=== PATIENT | female | born 1930 | race Caucasian/White ===

== ENCOUNTER 2017-02-11 18:45 | Outpatient (CLI) | payer MEDICARE, OTHER | END 2017-02-11 18:46 | disposition home or self-care (01) | DX: M79.605 Pain in left leg (principal) ==

== ENCOUNTER 2017-04-24 13:58 | Outpatient (CLI) | payer MEDICARE, OTHER ==
--- NOTE | 2017-04-25 09:17 | MRI Report ---
EXAM: MRI BRAIN WITHOUT CONTRAST EXAM DATE: 04/24/2017 03:40 PM. CLINICAL HISTORY: Mild cognitive impairment, amnesia. COMPARISON: CT scan of the head without contrast 01/11/2016. TECHNIQUE: Multiplanar, multisequence T1-weighted and fluid-sensitive MR sequences of the brain were performed. Sequences optimized for routine evaluation. Other: None. IV Contrast: None. FINDINGS: The diffusion-weighted images are normal. There is no evidence of acute or subacute cerebral infarcti on. There is focal enlargement of a sulcus of the medial frontoparietal junction. This measures 8 x 8 mm and likely reflects an arachnoid cyst within the sulcus. The pituitary and sella are normal. The craniocervical junction is normal. There is near complete opacification of the right sphenoid air cell exhibiting T1 hyperintensity and T2 hypointensity consistent with a mucous retention cyst. There is questionable mild sclerosis of the amos of the sphenoid air cell and therefore this may reflect a concomitant chronic sphenoid sinusit is. There is mild mucosal thickening in the anterior ethmoid complexes bilaterally. The cerebral vascular flow voids are patent. There is enlargement of the lateral ventricles and third ventricle. There is no funneling of the cere bral aqueduct. The Bang ratio is mildly elevated at 0.38. In the correct clinical setting I cannot e xclude the possibility of normal-pressure hydrocephalus. Recommend correlation with the clinical symp toms. The T2* sequence is normal. There is no evidence of subacute or chronic hemorrhage. There is mild mucosal thickening in the bilateral maxillary sinuses. There is a normal appearance of the nerve exit zone, cisternal and internal auditory canal segments o f the bilateral 7th and 8th cranial nerves. There is a normal appearance of the nerve exit zone and cisternal segments of the bilateral trigemina l nerve and Meckel's cave. The degree of atrophy of the hippocampi does not appear to be out of proportion to that of the suprat entorial brain. The FLAIR images demonstrate a few punctuate T2 hyperintensities within the subcortical, deep, and pe riventricular white matter. This is consistent with a minimal degree of chronic small vessel ischemia . IMPRESSION: 1. There is no evidence of acute or subacute cerebral infarction. 2. There is enlargement of the lateral ventricles and third ventricle which is at or slightly greater than expected for the degree of sulcal enlargement. The Bang ratio is mildly elevated at 0.38. In t he correct clinical setting, I cannot exclude normal-pressure hydrocephalus. Therefore recommend clin ical correlation. 3. There is minimal chronic small-vessel ischemia. 4. There is no evidence of brain mass. 5. The degree of hippocampal volume loss does not appear to be out of proportion to that of the supra tentorial brain. 6. There is a small arachnoid cyst of a sulcus of the left frontoparietal junction. 7. There is a large mucous retention cyst present within the right sphenoid air cell. Referring Provider Line: [phone] SITE ID: [id number]
== END 2017-04-24 13:59 | disposition home or self-care (01) ==
LOC: DI 13:58
PROVIDERS: ATTEND Family Medicine
DX: G93.0 Cerebral cysts (principal); G93.89 Other specified disorders of brain; J34.1 Cyst and mucocele of nose and nasal sinus
CPT/HCPCS: 70551

== ENCOUNTER 2017-07-14 12:20 | Outpatient (CLI) | payer MEDICARE, OTHER | END 2017-07-14 12:21 | disposition home or self-care (01) | LOC: LAB.WCP 12:20 | PROVIDERS: ATTEND Family Medicine | DX: N39.0 Urinary tract infection, site not specified (principal) | CPT/HCPCS: 87077; 87086 ==

== ENCOUNTER 2017-07-31 11:00 | Outpatient (CLI) | payer MEDICARE, OTHER ==
--- NOTE | 2017-07-31 14:14 | CONSULTATION NOTE ---
Palliative Care Follow Up - Referral Referring Provider: Dr Courtney Ordaz Time of Visit: 11:00 Referral setting: [facility] [place] - Information Sources Records reviewed: Previous records reviewed History/Review of Systems obtained from: Patient, Family - History of Present Illness Update Brief HPI Update: Thank you, Dr. Ordaz, for asking the palliative care consult service to be involved in the care of your patient. I am asked to provide support regarding worsening memory issues and goals of care. 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 The patient has been experiencing cognitive deficits which have increased over the past 6-8 weeks. She is quite involved with her local orthodox, and orthodox members have been noticing and inquiring of the daughters about developments such as her increasing slowness in the quilting group, being unable to do the set up for the social functions, and requiring prompting to turn the pages of the choir [employer]. Her ability to perform Instrumental Activities of Daily Living (IADLs) has declined: losing her way home while driving and arriving home nearly at midnight , not taking her medications, not shopping, letting food rot in the fridge, eating halloween candy instead of meals, forgetting her regularly scheduled activities and mixing up days of the week, no longer paying her bills. Her daughters found she was not showering or shampooing for weeks at a time. Two of her daughters confiscated her car keys to prevent her from driving, and now plan to remove the car for fear she still has access to a second set of keys. The patient is unaware of the extent of her cognitive decline, and is upset and dissatisfied about "being treated like a child, which is very painful for me." This is a [employer] family. The daughters explained that the first 3 daughters had a " family" history, meaning that they moved around the country and had a " mom," someone capable who got things done, ran the household and raised the children while the father was gone. There was a large time gap before the fourth daughter was born, and she was not really a " kid" because by then the father had retired from the [employer], and they had settled on [facility], and he went into the private sector, working at [employer] for the remainder of his career. The patient does see herself as a very capable, independent woman, and she has always been that way, so it has been difficult for her to have her independence being taken from her, as she views it, and worse is seeing changes in her abilities and her situation, which she never expected to experience. Her mental confusion has included delusions and hallucinations, thinking people were breaking into her house, or that her grandchildren were with her (they were in [place]). This might have been amplified by a recent K pneumoniae UTI, which was treated with a one-week regimen of antibiotics and just completed. At one point she became tearful when discussing the loss of her who 7 years ago. She recognizes she is still grieving for him, but she denies being depressed. Her daughters report she is at times confused and speaks as though he is still living. Due to her significant cognitive changes, the daughters have arranged for Sandra, who lives in [place], to stay with the patient in her home for weeks at a time. Elaina, the daughter who is the DPOA, lives in [place] but works full-time so it is difficult for her to transport her mother as needed, or to spend the nights. The third daughter who lives in [place] is also involved with her mother's care and has been able to occasionally stay too. Sandra will not be able to indefinitely stay at her mother's, and so the daughters are looking at longer term solutions, such as a dementia unit. The patient had lost weight previously when she was living solo, and the daughters estimate she may have dropped to less than 100 pounds. She has been eating better since Sandra has been living with her and cooking for her -- she weighed 110 pounds at the 07/14/17 clinic visit. The patient reports improved pain in her L hip, which had been bothering her in the past. She reports having no pain currently. She has previously taking and ibuprofen for it. She had a consultation with an orthopedic surgeon and surgical intervention was not indicated. She is currently on break from physical therapy, but will be restarting again on 08/04/17. She has been referred to neurology due to indication during her PCP's assessment there may be cogwheel rigidity in her upper extremities. This appointment is 08/18/[address] Kennedy at [facility]. Social History - Living Situation Living arrangement: At home Living Situation: Alone (previously), With family (currently, as a temporary solution her daughters are living/staying with her) Support System: The patient has lived on [facility] for 30 years, and in her home, which she had her built, for many years. Her , who was retired and then worked at [employer], in 2009. The [place] in a somewhat [place] setting, [place] [facility] [place] and has only a few houses around it. Her daughters stay at her house with her as much as possible. Sandra from [place] has been able to stay for extended periods. 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 Elaina lives in [place] and will spend the night at her mother's, but she works multimedia services manager so is limited in her ability to be there during the weekdays. Katie in [place] can occasionally stay too. The fourth and eldest daughter lives in [place] and is in regular communication with the family. The patient is quite active at her local orthodox in [place], involved in activities such as choir, a quilting group, book study. Medications/Allergies - Medications Home Medications: Ambulatory Orders Medication Instructions Recorded Confirmed Hydrochlorothiazide 25 mg PO DAILY 12/14/14 07/31/17 Propranolol HCl [Innopran Xl] 120 mg PO DAILY 12/14/14 07/31/17 Raloxifene [Evista] 60 mg PO DAILY 12/14/14 07/31/17 Doxycycline Hyclate 100 mg PO BID 07/31/17 07/31/17 Lisinopril 10 mg PO 07/31/17 Loperamide HCl [Imodium A-D] 2 mg PO DAILY PRN 07/31/17 07/31/17 - Allergies Allergies/Adverse Reactions: Allergies Allergy/AdvReac Type Severity Reaction Status Date / Time amoxicillin AdvReac Unknown Unknown Verified 07/31/17 16:02 Erythromycin AdvReac Unknown Unknown Uncoded 07/31/17 16:02 Review of Systems - Constitutional Constitutional: reports: Weight gain (110 lbs at 07/14/17 clinic visit. Daughters believe this is about a 10 lb weight gain.). denies: Fatigue, Fever, Chills, Poor appetite - Eyes Eyes: reports: Corrective lenses - Cardiovascular Cardiovascular: denies: Chest pain, Edema - Respiratory Respiratory: denies: Cough, SOB at rest, SOB with exertion - Gastrointestinal Gastrointestinal: reports: Other (loose stools which she controls with Imodium) - Musculoskeletal Musculoskeletal: reports: Other (No current complaint of L hip pain) - Neurological Neurological: reports: Memory problems, Other (Rigidity in upper extremities noted by PCP, with referral to neurology) - Psychiatric Psychiatric: reports: Hallucinations (Daughters report visual hallucinations in the past, seeing her grandchildren, or believing people were breaking in to her house.) Physical Exam - Vital Signs Temperature: 97.6 F Pulse Rate: 54 O2 Saturation: 99 Blood Pressure: 110/70 - Physical Exam General Appearance: positive: No acute distress, Alert Eyes Bilateral: positive: EOMI, No lid inflammation, Conjunctivae nml, No scleral icterus, Other (R eye squint) ENT: positive: No signs of dehydration Neck: positive: Thyroid nml, No JVD, Trachea midline Cardiovascular: positive: Regular rate & rhythm, No murmur, No gallop Respiratory: positive: Chest non-tender, No respiratory distress, Breath sounds nml Abdomen: positive: Non-tender, Soft, Nml bowel sounds Skin: positive: No symptoms Extremities: positive: Non-tender, Full ROM, Nml appearance, No pedal edema Neurologic/Psychiatric: positive: Motor nml, Mood/affect nml Palliative Care - POLST Patient has POLST: Yes POLST Status: DNR, Comfort Measures Pain: No pain, Pain improved Tiredness/Fatigue: None Drowsiness/Sedation: None Nausea: None Depression: Mild (1-3) (tearfulness during visit, may be feeling some depressed mood) Anxiety: Mild (1-3) (dissatisfaction with not having access to her car) Dyspnea: None Anorexia: None Sleep: Sleeps well Constipation: No (loose stools) Feelings of wellbeing/Perceived Quality of Life: Comment (Feels she is losing her independence and is "being treated like a child.") Performance Status: Current level of functioning: Significant decline of ADLs (lack of showering, eating inadequately) and IADLs (bill paying, driving, managing her calendar and social engagements, cooking her meals, shopping), inability to participate normally in social engagements (requiring prompting during choir practice, unable to set up tables at events, etc) Palliative Care Performance Status: 60% FAST Stage: 4 - Palliative Care Discussion: Who is present: The patient, her daughters Elaina and Sandra, myself Surrogate decision maker: Daughter/DPOA Elaina, . 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 Daughter Sandra, lives in [place] but stays frequently at her mother's house to help and cook for her. Daughter Katie Davidson, , lives in [place]. Daughter Leidy, the eldest, lives in [place]. She is in regular communication with the rest of the family. Patient/Family understanding of the illness: The patient does not have insight or realistic understanding of the extent of her memory issues and deficits. She is at the "rebellion" stage (taking a shower, or not, because "my daughter made me") The daughters recognize that the patient has increasing cognitive deficit and have appropriately increased their level of care and involvement and have started researching for alternate living situations. They are on two waitlists for memory units, one on the [place] and the other at [place]. Their preference at this point is [facility], since Elaina lives there. They had considered [place], but that is too far from the patient's social network. We discussed that they could also research local assisted living facilities, which may be able to accommodate the patient's needs, since her cognitive deficiencies are still mild and living with more advanced dementia residents may be very frustrating for her. Information preferences: The daughters made a request to the PCP to call Elaina and Katie for patient care. I spoke today with Elaina and Sandra since they were the ones in attendance at the visit. I followed up with a phone call to Sandra for further history. Most important goals and family concerns: The patient's independence is very important to her, and feeling as though she is still capable and in control of her life. Related to this is her desire to stay her in home. She was a , and she and her built this home after he retired from the service, and she has lived there many years, and does not want to leave her home, even if it means less mobility and convenience and social connections than if she were in town. The family is currently able to accommodate this wish, but only because Sandra is able to spend extended periods of time living with her and helping out. She cannot continue to do so indefinitely since she lives in [place] with her and family. Elaina and Sandra recognize it would be unsafe for the patient to be living solo, without support and oversight for ADLs and IADLs. They ensure she eats properly, takes her medications, is hygienic, has safe transportation to appointments, shopping, orthodox and social activities. They feel 24 hour/7 days-a-week care-giving at her home is not financially feasible, even if it were available. They have done research into memory units (and have been signed on to 2 waitlists), and are open to considering an assisted living unit. They would appreciate support and guidance on solutions to keeping their mother in her home, if it's safe, healthy, and feasible, and if it's not, then finding an appropriate residential setting. We also discussed goals of care and advanced planning. Patient and daughters were in agreement that comfort measures were consistent with the patient's goals , and not unnecessarily or artificially trying to prolong her life. "When the end comes, let it come." Impression and Recommendations - Palliative Care Impression: This is an 86-year-old woman with mild to moderate cognitive decline, but otherwise in relatively good health. She has experienced a recentdecline in her ability to perform ADLs and IADLs, and both she and her family would benefit from resources and support to keep her safe while living at home now, and eventually finding a suitable and safe living situation, whether at home with caregiving coverage, or in another setting. Currently she is able to remain at home due to her daughters coordinating their lives and schedules so she is not living alone, but this is not sustainable. The patient and family would benefit from social work support. Recommendations/Counseling Done: K pneumoniae UTI: Confusion improved, doxycycline 7-day regimen completed. They will return to PCP clinic for follow up UA. Dementia/cognitive deficit: Increased cognitive deficits impacting patient's ability to live independently. I am referring them to Palliative Care Fishing Vessel Operator for resource support and guidance. Patient has been referred by PCP to Neurology for evaluation and diagnosis of possible Parkinson's. L hip pain: Pain improved currently. Orthopedic surgeon consulted, surgery is not indicated. Physical therapy currently suspended; PT will restart on an outpatient basis on 08/04/17. HTN: Blood pressure 110/70. She is taking medications regularly since daughters have been monitoring. Continue propanolol, lisinopril, hctz. Loose stools, chronic: Controlled using loperamide daily as needed. Advanced care planning: Goals of care discussed and POLST signed: DNR, comfort care. Follow up in 1-2 weeks. 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 Time Spent: 75 minutes with greater than 50% of this done in counseling and coordination of care regarding advanced care planning and safe living situations, weighing benefits and burdens of different options.
== END 2017-07-31 11:01 | disposition home or self-care (01) ==
LOC: PC 11:00
PROVIDERS: ATTEND Nurse Practitioner
DX: Z51.5 Encounter for palliative care (principal); N39.0 Urinary tract infection, site not specified; B96.1 Klebsiella pneumoniae [K. pneumoniae] as the cause of diseases classified elsewhere; G31.84 Mild cognitive impairment of uncertain or unknown etiology; M25.552 Pain in left hip; I10 Essential (primary) hypertension; R19.7 Diarrhea, unspecified; N28.9 Disorder of kidney and ureter, unspecified; E78.5 Hyperlipidemia, unspecified; K58.9 Irritable bowel syndrome, unspecified; I73.00 Raynaud's syndrome without gangrene; R44.1 Visual hallucinations; F22 Delusional disorders; Z66 Do not resuscitate
CPT/HCPCS: 99205

== ENCOUNTER 2017-09-11 14:53 | Outpatient (CLI) | payer MEDICARE, OTHER ==
[2017-09-11 15:01] LABS: H. PYLORIS ANTIGEN STL NEGATIVE (Negative)
== END 2017-09-11 14:54 | disposition home or self-care (01) ==
LOC: LAB.WCP 14:53
PROVIDERS: ATTEND Family Medicine
DX: R19.7 Diarrhea, unspecified (principal)
CPT/HCPCS: 81599; 87045; 87046; 87177; 87209; 87329; 87338

== ENCOUNTER 2017-10-29 08:00 | Outpatient (CLI) | payer MEDICARE, OTHER | END 2017-10-29 08:01 | disposition home or self-care (01) | LOC: LAB.WCP 08:00 | PROVIDERS: ATTEND Family Medicine | DX: N39.0 Urinary tract infection, site not specified (principal) | CPT/HCPCS: 87086 ==

== ENCOUNTER 2017-11-22 13:06 | Emergency (ER) | payer MEDICARE, OTHER ==
--- NOTE | 2017-11-22 13:34 | ED Physician Documentation ---
PD HPI FEMALE - Stated complaint Stated Complaint: FEMALE - Chief complaint Chief Complaint: Abd Pain - History obtained from History obtained from: Patient, Family (daughter) - History of Present Illness Timing - onset: Today Timing - details: Waxing and waning (her daughter thought she was a bit confused at times this morning. Has had similar symptoms with UTIs in the past. Has not seemed sick otherwise. Normal eating (small amounts). No URI symptoms. No vomiting.) Associated symptoms: No: Fever, Dysuria, Urinary frequency Similar symptoms before: Diagnosis (UTI) Recently seen: Not recently seen Review of Systems Constitutional: denies: Fever Nose: denies: Rhinorrhea / runny nose, Congestion Throat: denies: Sore throat Cardiac: denies: Chest pain / pressure Respiratory: denies: Cough GI: denies: Abdominal Pain, Nausea, Vomiting, Diarrhea : denies: Dysuria, Frequency Skin: denies: Rash Neurologic: reports: Confused. denies: Generalized weakness, Focal weakness, Numbness, Near syncope, Altered mental status, Headache, Head injury PD PAST MEDICAL HISTORY - Past Medical History Cardiovascular: Hypertension Respiratory: None Neuro: None Psych: None - Past Surgical History Past Surgical History: No - Present Medications Home Medications: Ambulatory Orders Medication Instructions Recorded Confirmed Hydrochlorothiazide 25 mg PO DAILY 12/14/14 07/31/17 Propranolol HCl [Innopran Xl] 120 mg PO DAILY 12/14/14 07/31/17 Raloxifene [Evista] 60 mg PO DAILY 12/14/14 07/31/17 Doxycycline Hyclate 100 mg PO BID 07/31/17 07/31/17 Lisinopril 10 mg PO 07/31/17 Loperamide HCl [Imodium A-D] 2 mg PO DAILY PRN 07/31/17 07/31/17 - Allergies Allergies/Adverse Reactions: Allergies Allergy/AdvReac Type Severity Reaction Status Date / Time amoxicillin AdvReac Unknown Unknown Verified 11/22/17 13:16 Erythromycin AdvReac Unknown Unknown Uncoded 11/22/17 13:16 - Social History Does the pt smoke?: No Does the pt drink ETOH?: Yes Does the pt have substance abuse?: No - Immunizations Immunizations are current?: Yes - POLST Patient has POLST: Yes PD ED PE NORMAL - Vitals Vital signs reviewed: Yes - General General: Alert and oriented X 3, No acute distress, Well developed/nourished - HEENT HEENT: Atraumatic, Ears normal, Pharynx benign - Neck Neck: Supple, no meningeal sign, No adenopathy - Cardiac Cardiac: RRR, No murmur - Respiratory Respiratory: Clear bilaterally - Abdomen Abdomen: Soft, Non tender - Back Back: No CVA TTP - Derm Derm: Normal color, Warm and dry - Extremities Extremities: No tenderness to palpate, Normal ROM s pain, No edema, No calf tenderness / cord - Neuro Neuro: Alert and oriented X 3, No motor deficit, Normal speech Results - Vitals Vitals: Oxygen O2 Source Room air - Labs Labs: Laboratory Tests 11/22/17 11/22/17 11/22/17 13:59 14:19 14:19 WBC 6.6 RBC 3.41 L Hgb 11.2 L Hct 32.5 L MCV 95.3 MCH 32.7 H MCHC 34.3 RDW 13.6 Plt Count 188 MPV 7.9 Neut # 3.7 Lymph # 1.6 Nelson # 0.8 Eos # 0.4 Baso # 0.1 Absolute Nucleated RBC 0.01 Nucleated RBC % 0.1 Sodium 142 Potassium 3.7 Chloride 108 Carbon Dioxide 24 Anion Gap 10.0 BUN 32 H Creatinine 1.5 H Estimated GFR (MDRD) 33 L Glucose 97 Calcium 8.9 Magnesium 1.9 Total Bilirubin 0.8 AST 24 ALT 15 Alkaline Phosphatase 83 Total Protein 6.4 L Albumin 3.6 Globulin 2.8 Albumin/Globulin Ratio 1.3 Lipase 26 Urine Color YELLOW Urine Clarity CLEAR Urine pH 6.0 Ur Specific [place] 1.010 Urine Protein NEGATIVE Urine Glucose (UA) NEGATIVE Urine Ketones NEGATIVE Urine Occult Blood TRACE-LYSE Urine Nitrite NEGATIVE Urine Bilirubin NEGATIVE Urine Urobilinogen 0.2 (NORMAL) Ur Leukocyte Esterase NEGATIVE Ur Microscopic Review NOT INDICATED Urine Culture Comments NOT INDICATED PD MEDICAL DECISION MAKING - ED course Complexity details: considered differential (the patient seems conversant and alert right now. Daughter is okay with not finding UTI. Consider undulating confusion related to her dementia. ), d/w patient, d/w family Departure - Departure Disposition: 01 Home, Self Care Clinical Impression: Altered awareness, transient Clinical Impression: (Ruled Out): Urinary tract infectious disease Condition: Stable Record reviewed to determine appropriate education?: Yes Follow-Up: Courtney Ordaz MD [Primary Care Provider] - Comments: Usual medications. drink lots of fluids. Follow-up with your primary care if recurrent symptoms. Your urine test and basic blood tests are normal here as are your vital signs. Discharge Date/Time: 11/22/17 15:52
[2017-11-22 14:03] LABS: BILIRUBIN,URINE NEGATIVE (NEGATIVE); GLUCOSE, URINE (UA) NEGATIVE (NEGATIVE); KETONES,URINE (UA) NEGATIVE (NEGATIVE); LEUKOCYTE ESTERASE, URINE NEGATIVE (NEGATIVE); NITRITE,URINE NEGATIVE (NEGATIVE); OCCULT BLOOD,URINE TRACE-LYSE (NEGATIVE); PROTEIN,URINE NEGATIVE (NEGATIVE); UROBILINOGEN,URINE 0.2 (NORMAL) E.U./dL (NORMAL)
[2017-11-22 14:11] LABS: CLARITY,URINE CLEAR (CLEAR)
[2017-11-22 14:41] LABS: BASOPHILS # (AUTO) 0.1 10^3/uL (0.0-0.1); BASOPHILS % (AUTO) 0.9 %; EOSINOPHILS # (AUTO) 0.4 10^3/uL (0.0-0.7); EOSINOPHILS % (AUTO) 6.6 %; HGB - HEMOGLOBIN 11.2 g/dL (12.0-16.0); LYMPHOCYTES # (AUTO) 1.6 10^3/uL (1.5-3.5); LYMPHOCYTES % (AUTO) 23.9 %; MEAN CORPUSCULAR HEMOGLOBIN 32.7 pg (27.0-31.0); MEAN CORPUSCULAR HGB CONC 34.3 g/dL (32.0-36.0); MEAN CORPUSCULAR VOLUME 95.3 fL (81.0-99.0); MEAN PLATELET VOLUME 7.9 fL (7.9-10.8); MONOCYTES # (AUTO) 0.8 10^3/uL (0.0-1.0); MONOCYTES % (AUTO) 11.9 %; NEUTROPHILS # (AUTO) 3.7 10^3/uL (1.5-6.6); NEUTROPHILS % (AUTO) 56.7 %; PLT - PLATELET COUNT 188 10^3/uL (130-450); RED BLOOD COUNT 3.41 10^6/uL (4.20-5.40); RED CELL DISTRIBUTION WIDTH 13.6 % (12.0-15.0); WHITE BLOOD COUNT 6.6 x10^3/uL (4.8-10.8)
[2017-11-22 14:44] LABS: ALBUMIN 3.6 g/dL (3.2-5.5); ALBUMIN/GLOBULIN RATIO 1.3 (1.0-2.2); BILIRUBIN,TOTAL 0.8 mg/dL (0.2-1.0); CALCIUM 8.9 mg/dL (8.5-10.3); CREATININE 1.5 mg/dL (0.4-1.0); MAGNESIUM 1.9 mg/dL (1.7-2.8); TOTAL PROTEIN 6.4 g/dL (6.7-8.2)
[2017-11-22 15:52] VITALS: BP 120/59
== END 2017-11-22 15:52 | disposition home or self-care (01) ==
LOC: ED 13:06
DX: R40.4 Transient alteration of awareness (principal); I10 Essential (primary) hypertension
CPT/HCPCS: 36415; 80053; 81001; 81003; 83690; 83735; 85025; 87086; 99283

== ENCOUNTER 2018-04-20 09:04 | Outpatient (CLI) | payer MEDICARE, OTHER ==
[2018-04-20 13:21] LABS: CALCIUM 8.9 mg/dL (8.5-10.3); CREATININE 1.4 mg/dL (0.4-1.0)
== END 2018-04-20 09:05 | disposition home or self-care (01) ==
LOC: LAB.WCP 09:04
PROVIDERS: ATTEND Family Medicine
DX: I10 Essential (primary) hypertension (principal)
CPT/HCPCS: 36415; 80048

== ENCOUNTER 2018-07-03 09:31 | Outpatient (CLI) | payer MEDICARE, OTHER ==
[2018-07-03 12:14] LABS: BASOPHILS # (AUTO) 0.1 10^3/uL (0.0-0.1); BASOPHILS % (AUTO) 0.7 %; EOSINOPHILS # (AUTO) 0.3 10^3/uL (0.0-0.7); EOSINOPHILS % (AUTO) 4.4 %; HGB - HEMOGLOBIN 12.4 g/dL (12.0-16.0); LYMPHOCYTES # (AUTO) 1.2 10^3/uL (1.5-3.5); LYMPHOCYTES % (AUTO) 15.2 %; MEAN CORPUSCULAR HEMOGLOBIN 31.7 pg (27.0-31.0); MEAN CORPUSCULAR HGB CONC 34.1 g/dL (32.0-36.0); MEAN PLATELET VOLUME 8.5 fL (7.9-10.8); MONOCYTES # (AUTO) 0.6 10^3/uL (0.0-1.0); MONOCYTES % (AUTO) 7.3 %; NEUTROPHILS # (AUTO) 5.7 10^3/uL (1.5-6.6); NEUTROPHILS % (AUTO) 72.4 %; PLT - PLATELET COUNT 236 10^3/uL (130-450); RED CELL DISTRIBUTION WIDTH 13.8 % (12.0-15.0); WHITE BLOOD COUNT 7.8 x10^3/uL (4.8-10.8)
[2018-07-03 12:46] LABS: ALBUMIN 3.7 g/dL (3.2-5.5); ALBUMIN/GLOBULIN RATIO 1.3 (1.0-2.2); ALKALINE PHOSPHATASE 111 IU/L (42-121); ALT ALANINE AMINOTRANSFERASE 11 IU/L (10-60); AST ASPARTATE AMINOTRANSFERASE 21 IU/L (10-42); BILIRUBIN,TOTAL 0.8 mg/dL (0.2-1.0); BUN - BLOOD UREA NITROGEN 29 mg/dL (6-20); CALCIUM 8.6 mg/dL (8.5-10.3); CARBON DIOXIDE - CO2 29 mmol/L (21-32); CHLORIDE 106 mmol/L (101-111); CHOL/HDL RATIO 2.8 (<4.4); CHOLESTEROL 183 mg/dL; CREATININE 1.5 mg/dL (0.4-1.0); GFR - MDRD 33 (>89); GLUCOSE 104 mg/dL (70-100); HDL CHOLESTEROL 65 mg/dL; LDL CHOLESTEROL,CALCULATED 102 mg/dL; LDL/HDL RATIO 1.6 (<4.4); SODIUM 143 mmol/L (135-145); TOTAL PROTEIN 6.6 g/dL (6.7-8.2); VLDL CHOLESTEROL 16 mg/dL
== END 2018-07-03 09:32 | disposition home or self-care (01) ==
LOC: LAB.WCP 09:31
PROVIDERS: ATTEND Family Medicine
DX: E78.5 Hyperlipidemia, unspecified (principal); I10 Essential (primary) hypertension; R25.1 Tremor, unspecified
CPT/HCPCS: 36415; 80053; 80061; 83721; 84443; 85025

== ENCOUNTER 2018-10-08 16:06 | Emergency (ER) | payer MEDICARE, OTHER ==
[2018-10-08 17:37] LABS: BASOPHILS % (AUTO) 0.3 %; EOSINOPHILS # (AUTO) 0.2 10^3/uL (0.0-0.7); HGB - HEMOGLOBIN 13.6 g/dL (12.0-16.0); LYMPHOCYTES # (AUTO) 1.1 10^3/uL (1.5-3.5); LYMPHOCYTES % (AUTO) 9.8 %; MEAN CORPUSCULAR HEMOGLOBIN 30.6 pg (27.0-31.0); MEAN CORPUSCULAR HGB CONC 32.3 g/dL (32.0-36.0); MEAN CORPUSCULAR VOLUME 94.8 fL (81.0-99.0); MEAN PLATELET VOLUME 7.9 fL (7.9-10.8); MONOCYTES # (AUTO) 0.5 10^3/uL (0.0-1.0); MONOCYTES % (AUTO) 4.9 %; NEUTROPHILS # (AUTO) 9.1 10^3/uL (1.5-6.6); PLT - PLATELET COUNT 242 10^3/uL (130-450); RED BLOOD COUNT 4.43 10^6/uL (4.20-5.40); RED CELL DISTRIBUTION WIDTH 15.4 % (12.0-15.0); WHITE BLOOD COUNT 10.9 x10^3/uL (4.8-10.8)
[2018-10-08 17:46] LABS: ALBUMIN 4.2 g/dL (3.2-5.5); ALBUMIN/GLOBULIN RATIO 1.2 (1.0-2.2); BILIRUBIN,TOTAL 1.2 mg/dL (0.2-1.0); CALCIUM 8.6 mg/dL (8.5-10.3); CREATININE 1.5 mg/dL (0.4-1.0); TOTAL PROTEIN 7.6 g/dL (6.7-8.2)
[2018-10-08 18:06] LABS: BILIRUBIN,URINE NEGATIVE (NEGATIVE); GLUCOSE, URINE (UA) NEGATIVE (NEGATIVE); KETONES,URINE (UA) NEGATIVE (NEGATIVE); LEUKOCYTE ESTERASE, URINE NEGATIVE (NEGATIVE); NITRITE,URINE POSITIVE (NEGATIVE); OCCULT BLOOD,URINE TRACE-LYSE (NEGATIVE); PH,URINE 5.5 PH (5.0-7.5); PROTEIN,URINE NEGATIVE (NEGATIVE); UROBILINOGEN,URINE 0.2 (NORMAL) E.U./dL (NORMAL)
[2018-10-08 18:08] LABS: CLARITY,URINE CLEAR (CLEAR)
[2018-10-08 18:16] LABS: BACTERIA,URINE Many /HPF (None Seen); RBC,URINE 0-5 /HPF (0-5); SQUAMOUS EPITHELIAL CELL,UR RARE Squamous (<= Few)
--- NOTE | 2018-10-08 18:21 | ED Physician Documentation ---
PD HPI CHEST PAIN - Stated complaint Stated Complaint: ABD PX/VOM - Chief complaint Chief Complaint: Abd Pain PD PAST MEDICAL HISTORY - Past Medical History Cardiovascular: Hypertension Respiratory: None Psych: None - Past Surgical History Past Surgical History: No - Present Medications Home Medications: Ambulatory Orders Medication Instructions Recorded Confirmed Hydrochlorothiazide 25 mg PO DAILY 12/14/14 07/31/17 Propranolol HCl [Innopran Xl] 120 mg PO DAILY 12/14/14 07/31/17 Raloxifene [Evista] 60 mg PO DAILY 12/14/14 07/31/17 Doxycycline Hyclate 100 mg PO BID 07/31/17 07/31/17 Lisinopril 10 mg PO 07/31/17 Loperamide HCl [Imodium A-D] 2 mg PO DAILY PRN 07/31/17 07/31/17 - Allergies Allergies/Adverse Reactions: Allergies Allergy/AdvReac Type Severity Reaction Status Date / Time amoxicillin AdvReac Unknown Unknown Verified 10/08/18 16:36 Erythromycin AdvReac Unknown Unknown Uncoded 11/22/17 13:16 - Social History Does the pt smoke?: No Smoking Status: Never smoker Does the pt drink ETOH?: Yes Does the pt have substance abuse?: No - Immunizations Immunizations are current?: Yes - POLST Patient has POLST: Yes Results - Vitals Vitals: Vital Signs - 24 hr 10/08/18 16:24 Temperature 36.4 C L Heart Rate 71 Respiratory 18 Rate Blood Pressure 139/50 H O2 Saturation 100 Oxygen O2 Source Room air - Labs Labs: Laboratory Tests 10/08/18 10/08/18 10/08/18 17:05 17:05 18:00 WBC 10.9 H RBC 4.43 Hgb 13.6 Hct 42.0 MCV 94.8 MCH 30.6 MCHC 32.3 RDW 15.4 H Plt Count 242 MPV 7.9 Neut # (Auto) 9.1 H Lymph # (Auto) 1.1 L [place] # (Auto) 0.5 Eos # (Auto) 0.2 Baso # (Auto) 0.0 Absolute Nucleated RBC 0.01 Nucleated RBC % 0.1 Sodium 137 Potassium 2.9 L Chloride 102 Carbon Dioxide 26 Anion Gap 9.0 BUN 25 H Creatinine 1.5 H Estimated GFR (MDRD) 33 L Glucose 138 H Calcium 8.6 Total Bilirubin 1.2 H AST 189 H ALT 86 H Alkaline Phosphatase 130 H Total Protein 7.6 Albumin 4.2 Globulin 3.4 Albumin/Globulin Ratio 1.2 Lipase 81 H Urine Color YELLOW Urine Clarity CLEAR Urine pH 5.5 Ur Specific [place] >=1.030 H Urine Protein NEGATIVE Urine Glucose (UA) NEGATIVE Urine Ketones NEGATIVE Urine Occult Blood TRACE-LYSE Urine Nitrite POSITIVE H Urine Bilirubin NEGATIVE Urine Urobilinogen 0.2 (NORMAL) Ur Leukocyte Esterase NEGATIVE Urine RBC 0-5 Urine WBC 0-3 Ur Squamous Epith Cells RARE Squamous Urine Bacteria Many H Ur Microscopic Review INDICATED Urine Culture Comments INDICATED
--- NOTE | 2018-10-08 18:22 | ED Physician Documentation ---
PD HPI ABD PAIN - Stated complaint Stated Complaint: ABD PX/VOM - Chief complaint Chief Complaint: Abd Pain - History obtained from History obtained from: Patient, Family (daughter) - History of Present Illness Timing - onset: How many hours ago (1-2), Today Timing - duration: Hours (1) Timing - details: Abrupt onset (The patient and her daughter states she had an abrupt onset of diffuse to mid abdominal pain associated with nausea and vomiting several times. There is no diarrhea to it. She did not have any injury. She had been feeling okay earlier in the day and then abruptly had the pain. It lasted 1/2-hour to an hour it is improving on route to here. She states her pain is gone at this time of my exam. She had not had any prior similar episodes. She had eaten shortly before.) Quality: Cramping, Aching, Pain. No: Fullness/distended Location: All over / everywhere, Periumbilical Radiation: No: Chest, Lower back Improved by: No: Vomiting Worsened by: Moving, Palpation. No: Breathing Associated symptoms: Nausea, Vomiting. No: Fever, Diarrhea, Constipation, Dysuria, Chest pain, Loss of appetite Similar symptoms before: Has not had sx before Recently seen: Clinic (had UTI couple weeks ago and is finished abx last week.) Review of Systems Constitutional: denies: Fever, Myalgias Nose: denies: Rhinorrhea / runny nose, Congestion Throat: denies: Sore throat Cardiac: denies: Chest pain / pressure Respiratory: denies: Cough GI: denies: Constipation, Diarrhea, Bloody / black stool : denies: Dysuria, Frequency Skin: denies: Rash Neurologic: denies: Generalized weakness, Near syncope, Altered mental status PD PAST MEDICAL HISTORY - Past Medical History Cardiovascular: Hypertension Respiratory: None Neuro: None, Dementia Endocrine/Autoimmune: None : Chronic bladder infection Psych: None - Past Surgical History Past Surgical History: No - Present Medications Home Medications: Ambulatory Orders Medication Instructions Recorded Confirmed Hydrochlorothiazide 25 mg PO DAILY 12/14/14 07/31/17 Propranolol HCl [Innopran Xl] 120 mg PO DAILY 12/14/14 07/31/17 Raloxifene [Evista] 60 mg PO DAILY 12/14/14 07/31/17 Doxycycline Hyclate 100 mg PO BID 07/31/17 07/31/17 Lisinopril 10 mg PO 07/31/17 Loperamide HCl [Imodium A-D] 2 mg PO DAILY PRN 07/31/17 07/31/17 Potassium Chloride 10 meq PO DAILY #10 tablet.er 10/08/18 - Allergies Allergies/Adverse Reactions: Allergies Allergy/AdvReac Type Severity Reaction Status Date / Time amoxicillin AdvReac Unknown Unknown Verified 10/08/18 16:36 Erythromycin AdvReac Unknown Unknown Uncoded 11/22/17 13:16 - Social History Does the pt smoke?: No Smoking Status: Never smoker Does the pt drink ETOH?: Yes Does the pt have substance abuse?: No - Immunizations Immunizations are current?: Yes - POLST Patient has POLST: Yes PD ED PE NORMAL - Vitals Vital signs reviewed: Yes - General General: Alert and oriented X 3, No acute distress, Well developed/nourished - HEENT HEENT: Moist mucous membranes, Pharynx benign - Neck Neck: Supple, no meningeal sign, No adenopathy - Cardiac Cardiac: RRR, No murmur - Respiratory Respiratory: Clear bilaterally - Abdomen Abdomen: Normal bowel sounds, Soft, Non tender, Non distended, No organomegaly, Other (no palpable masses) - Female Female : Deferred - Rectal Rectal: Deferred - Back Back: No CVA TTP - Derm Derm: Normal color - Extremities Extremities: No deformity, No tenderness to palpate, Normal ROM s pain, No edema, No calf tenderness / cord - Neuro Neuro: Alert and oriented X 3, No motor deficit, Normal speech Results - Vitals Vitals: Oxygen O2 Source Room air - Labs Labs: Microbiology 10/08/18 18:00 Urine Culture - Final Urine,Clean Catch Escherichia Coli Laboratory Tests 10/08/18 10/08/18 10/08/18 17:05 17:05 18:00 WBC 10.9 H RBC 4.43 Hgb 13.6 Hct 42.0 MCV 94.8 MCH 30.6 MCHC 32.3 RDW 15.4 H Plt Count 242 MPV 7.9 Neut # (Auto) 9.1 H Lymph # (Auto) 1.1 L [place] # (Auto) 0.5 Eos # (Auto) 0.2 Baso # (Auto) 0.0 Absolute Nucleated RBC 0.01 Nucleated RBC % 0.1 Sodium 137 Potassium 2.9 L Chloride 102 Carbon Dioxide 26 Anion Gap 9.0 BUN 25 H Creatinine 1.5 H Estimated GFR (MDRD) 33 L Glucose 138 H Calcium 8.6 Total Bilirubin 1.2 H AST 189 H ALT 86 H Alkaline Phosphatase 130 H Total Protein 7.6 Albumin 4.2 Globulin 3.4 Albumin/Globulin Ratio 1.2 Lipase 81 H Urine Color YELLOW Urine Clarity CLEAR Urine pH 5.5 Ur Specific [place] >=1.030 H Urine Protein NEGATIVE Urine Glucose (UA) NEGATIVE Urine Ketones NEGATIVE Urine Occult Blood TRACE-LYSE Urine Nitrite POSITIVE H Urine Bilirubin NEGATIVE Urine Urobilinogen 0.2 (NORMAL) Ur Leukocyte Esterase NEGATIVE Urine RBC 0-5 Urine WBC 0-3 Ur Squamous Epith Cells RARE Squamous Urine Bacteria Many H Ur Microscopic Review INDICATED Urine Culture Comments INDICATED - Rads (name of study) abd CT Radiology: Prelim report reviewed (Diverticulosis without any diverticulitis. No signs of bowel obstruction. No kidney stones. Gallbladder appears normal. No obvious vascular process.), See rad report PD MEDICAL DECISION MAKING - ED course Complexity details: reviewed results (No obvious acute abnormality. There is some possible UTI but her daughter says this is a common finding. They would prefer to wait on the cultures to see if it is a true infection.), considered differential (Abrupt onset of pain which then diminished and is feeling good now, makes me think of reversible processes such as partial bowel obstruction, biliary colic, mesenteric ischemia, kidney stone, or just intestinal spasm. Even though she is feeling better now I would still do some lab tests and a CT scan to look for potential recurrent causes.), d/w patient Departure - Departure Disposition: 01 Home, Self Care Clinical Impression: Hypokalemia, Pyuria Abdominal pain Qualifiers: Abdominal location: generalized Qualified Code(s): R10.84 - Generalized abdominal pain Condition: Stable Record reviewed to determine appropriate education?: Yes Instructions: ED Abdominal Pain Unkn Cause Follow-Up: Courtney Ordaz MD [Primary Care Provider] - Prescriptions: Potassium Chloride 10 meq PO DAILY #10 tablet.er Comments: Your potassium level is little bit low and so he could consider supplement daily for the next week. I think this is unrelated to the symptoms he had. There is possible bladder infection. We can watch to see how the urine culture comes out in a couple of days before deciding on antibiotics or not. The CT scan did not show any obvious cause for the abdominal pain you had today. I would not therefore expected to recur. Follow-up with your primary care in the next few days, call for an appointment. Discharge Date/Time: 10/08/18 22:27
[2018-10-08] MEDS ORDERED: SODIUM CHLORIDE 0.9% 1,000 ML IV ONE (18:44)
--- NOTE | 2018-10-08 20:37 | CT Report ---
Reason: mid to upper abd pain abruptly today Procedure Date: 10/08/2018 Accession Number: [id number] / [id number] Procedure: CT - Abdomen/Pelvis W/O CPT Code: FULL RESULT: EXAM: CT ABDOMEN AND PELVIS EXAM DATE: 10/08/2018 08:15 PM. CLINICAL HISTORY: Mid to upper abd pain abruptly today. COMPARISONS: None. TECHNIQUE: Routine axial helical CT imaging was performed through the abdomen and pelvis without IV contrast. Reconstructions: Coronal and sagittal. In accordance with CT protocol optimization, one or more of the following dose reduction techniques were utilized for this exam: automated exposure control, adjustment of mA and/or KV based on patient size, or use of iterative reconstructive technique. FINDINGS: Lung Bases: There is cardiomegaly. No evidence of focal infiltrate. Abdominal Organs: Noncontrast images of the abdominal organs are grossly unremarkable. Gallbladder/bile ducts: No significant abnormalities. Peritoneal Cavity: No dilated or thick-walled bowel is seen. There is distal colon diverticulosis. No evidence of diverticulitis. There is moderate stool within distal colon. No evidence of appendicitis. No intraperitoneal free air or free fluid. No enlarged mesenteric or retroperitoneal lymph nodes. Pelvic Organs: No bladder stones or wall thickening. Noncontrast images of the visualized pelvic organs are unremarkable. Vasculature: Unremarkable. Other: None. IMPRESSION: 1. No acute noncontrast abnormalities to account for the patient's presentation. No evidence of bowel obstruction or appendicitis. 2. There is distal colon diverticulosis without evidence of diverticulitis. 3. There is moderate stool within distal colon. 4. Solid abdominal organs demonstrate no acute noncontrast abnormalities.
[2018-10-08 21:03] VITALS: BP 132/61
[2018-10-08] MEDS ORDERED: POTASSIUM BICARB 25 MEQ TABLET PO STA (22:00)
== END 2018-10-08 22:27 | disposition home or self-care (01) ==
LOC: ED 16:06
DX: E87.6 Hypokalemia (principal); N39.0 Urinary tract infection, site not specified; R10.84 Generalized abdominal pain; I10 Essential (primary) hypertension
CPT/HCPCS: 36415; 74176; 80053; 81001; 83690; 85025; 87086; 87181; 96360; 96361; 99283; A9270; 81003

== ENCOUNTER 2018-10-12 08:00 | Outpatient (CLI) | payer MEDICARE, OTHER ==
[2018-10-12 13:24] LABS: ALBUMIN 3.9 g/dL (3.2-5.5); ALBUMIN/GLOBULIN RATIO 1.2 (1.0-2.2); CREATININE 1.4 mg/dL (0.4-1.0); TOTAL PROTEIN 7.2 g/dL (6.7-8.2)
== END 2018-10-12 23:59 | disposition home or self-care (01) ==
LOC: LAB.WCP 08:00
PROVIDERS: ATTEND Family Medicine
DX: I10 Essential (primary) hypertension (principal); N39.0 Urinary tract infection, site not specified; N28.9 Disorder of kidney and ureter, unspecified
CPT/HCPCS: 36415; 80053; 87086

== ENCOUNTER 2018-10-25 09:49 | Emergency (ER) | payer MEDICARE, OTHER ==
--- NOTE | 2018-10-25 10:47 | ED Physician Documentation ---
PD HPI HEAD INJURY - Stated complaint Stated Complaint: GLF - Chief complaint Chief Complaint: General - History obtained from History obtained from: Patient, Family - History of Present Illness Mechanism of head injury: Fell Where head injury occurred: Street Timing - onset: Today Location of injury: Top Quality of pain: Pain Associated symptoms: No: LOC, AMS, Amnesia, Nausea / vomiting, Neck pain, Paresthesias, Seizures, Ear drainage, Nasal drainage Symptoms improve with: Rest Symptoms worsen with: Palpation Contributing factors: No: Anticoagulated Similar symptoms before: Has not had sx before Recently seen: Emergency Dept - Additional information Additional information: 88-year-old female with mild dementia was out in [facility] when she went to step up on a curb she fell backwards and fell onto the top of her head. She did not fall hard she did not get knocked unconscious and she has an abrasion to the top of her head but otherwise does not feel injured. She denies any pain in her neck she denies any numbness or tingling she denies any nausea or dizziness. She has recently been seen in the emergency department for diarrhea and she does have chronic urinary tract infection she is on antibiotic for that. She has had one other fall about 6 months ago. She has been evaluated for Parkinson's with her dementia and a slight tremor. She does have a follow-up with an neurologist at the end of next month. Review of Systems Constitutional: denies: Fever Eyes: denies: Decreased vision Ears: denies: Loss of hearing, Ear pain Nose: denies: Rhinorrhea / runny nose, Congestion Throat: denies: Sore throat Cardiac: denies: Chest pain / pressure, Palpitations Respiratory: denies: Dyspnea, Cough GI: denies: Abdominal Pain, Nausea, Vomiting, Constipation, Diarrhea : denies: Dysuria, Frequency Skin: reports: Abrasion (s). denies: Rash Musculoskeletal: denies: Neck pain, Back pain, Extremity pain Neurologic: denies: Generalized weakness, Focal weakness, Numbness PD PAST MEDICAL HISTORY - Past Medical History Cardiovascular: Hypertension Respiratory: None Neuro: None, Dementia Endocrine/Autoimmune: None : Chronic bladder infection Psych: None - Past Surgical History Past Surgical History: Yes /PRIME BROKER: Hysterectomy - Present Medications Home Medications: Ambulatory Orders Medication Instructions Recorded Confirmed Hydrochlorothiazide 25 mg PO DAILY 12/14/14 10/25/18 Propranolol HCl [Innopran Xl] 120 mg PO DAILY 12/14/14 10/25/18 Raloxifene [Evista] 60 mg PO DAILY 12/14/14 10/25/18 Doxycycline Hyclate 100 mg PO BID 07/31/17 10/25/18 Loperamide HCl [Imodium A-D] 2 mg PO DAILY PRN 07/31/17 10/25/18 Potassium Chloride 10 meq PO DAILY #10 tablet.er 10/08/18 10/25/18 - Allergies Allergies/Adverse Reactions: Allergies Allergy/AdvReac Type Severity Reaction Status Date / Time amoxicillin AdvReac Unknown Unknown Verified 10/08/18 16:36 Erythromycin AdvReac Unknown Unknown Uncoded 11/22/17 13:16 - Social History Does the pt smoke?: No Smoking Status: Never smoker Does the pt drink ETOH?: Yes ETOH Use: Wine Does the pt have substance abuse?: No - Immunizations Immunizations are current?: Yes - POLST Patient has POLST: Yes PD ED PE NORMAL - Vitals Vital signs reviewed: Yes (hypertensive mild ) - General General: No acute distress, Well developed/nourished, Other (Thin ) - HEENT HEENT: PERRL, EOMI, Other (There is an abrasion to the vertex without crepitance or step off. ) - Neck Neck: Supple, no meningeal sign, No bony TTP - Cardiac Cardiac: RRR, No murmur - Respiratory Respiratory: No respiratory distress, Clear bilaterally - Abdomen Abdomen: Soft, Non tender - Back Back: No CVA TTP, No spinal TTP - Derm Derm: Normal color, Warm and dry, No rash - Extremities Extremities: No deformity, No edema, Other (There is mild cogwheeling to the ri ght upper ext and not the left. There is not much of a tremor) - Neuro Neuro: string top sealer 2-12 intact, No motor deficit, No sensory deficit, Normal speech Eye Opening: Spontaneous Motor: Obeys Commands Verbal: Confused GCS Score: 14 - Psych Psych: Normal mood, Normal affect Results - Vitals Vitals: Vital Signs - 24 hr 10/25/18 09:58 Temperature 36.4 C L Heart Rate 68 Respiratory 14 Rate Blood Pressure 149/72 H O2 Saturation 100 Oxygen O2 Source Room air PD MEDICAL DECISION MAKING - ED course Complexity details: considered differential, d/w patient, d/w family ED course: 88-year-old female with a fall and abrasion to her vertex of her head did not have loss of consciousness she is acting normal according to a daughter who is here with her now and is very familiar with her mother. The daughter is a prior emergency department nurse. She has brought her mother here to the emergency department for evaluation secondary to this fall. She does state that she will have a follow-up appointment with the neurologist at the end of October and will again ask about Parkinson's. Departure - Departure Disposition: 01 Home, Self Care Clinical Impression: Fall (on)(from) incline, initial encounter Scalp abrasion Qualifiers: Encounter type: initial encounter Qualified Code(s): S00.01XA - Abrasion of scalp, initial encounter Instructions: ED Head Injury Closed, ED Abrasion Follow-Up: Courtney Ordaz MD [Primary Care Provider] -
[2018-10-25 10:56] VITALS: BP 143/76
== END 2018-10-25 10:55 | disposition home or self-care (01) ==
LOC: ED 09:49
DX: S00.01XA Abrasion of scalp, initial encounter (principal); W18.09XA Striking against other object with subsequent fall, initial encounter; Y92.410 Unspecified street and highway as the place of occurrence of the external cause; F03.90 Unspecified dementia, unspecified severity, without behavioral disturbance, psychotic disturbance, mood disturbance, and anxiety; I10 Essential (primary) hypertension
CPT/HCPCS: 99282; 99283

== ENCOUNTER 2018-11-18 07:54 | Outpatient (CLI) | payer MEDICARE, OTHER ==
[2018-11-18 12:53] LABS: BASOPHILS # (AUTO) 0.1 10^3/uL (0.0-0.1); BASOPHILS % (AUTO) 0.7 %; EOSINOPHILS # (AUTO) 0.8 10^3/uL (0.0-0.7); HGB - HEMOGLOBIN 11.8 g/dL (12.0-16.0); LYMPHOCYTES # (AUTO) 0.7 10^3/uL (1.5-3.5); LYMPHOCYTES % (AUTO) 9.1 %; MEAN CORPUSCULAR HEMOGLOBIN 31.8 pg (27.0-31.0); MEAN CORPUSCULAR HGB CONC 34.1 g/dL (32.0-36.0); MEAN CORPUSCULAR VOLUME 93.2 fL (81.0-99.0); MONOCYTES # (AUTO) 0.5 10^3/uL (0.0-1.0); MONOCYTES % (AUTO) 7.1 %; NEUTROPHILS # (AUTO) 5.6 10^3/uL (1.5-6.6); NEUTROPHILS % (AUTO) 73.1 %; PLT - PLATELET COUNT 226 10^3/uL (130-450); RED BLOOD COUNT 3.71 10^6/uL (4.20-5.40); WHITE BLOOD COUNT 7.6 x10^3/uL (4.8-10.8)
[2018-11-18 13:17] LABS: CHOL/HDL RATIO 3.8 (<4.4); CHOLESTEROL 157 mg/dL; HDL CHOLESTEROL 41 mg/dL; LDL CHOLESTEROL,CALCULATED 98 mg/dL; LDL/HDL RATIO 2.4 (<4.4); VLDL CHOLESTEROL 18 mg/dL
== END 2018-11-18 07:55 | disposition home or self-care (01) ==
LOC: LAB.WCP 07:54
PROVIDERS: ATTEND Family Medicine
DX: E78.5 Hyperlipidemia, unspecified (principal); I10 Essential (primary) hypertension; N28.9 Disorder of kidney and ureter, unspecified; K21.9 Gastro-esophageal reflux disease without esophagitis
CPT/HCPCS: 36415; 80061; 81001; 83721; 84443; 85025; 87086

== ENCOUNTER 2019-02-16 10:20 | Outpatient (CLI) | payer MEDICARE, OTHER ==
[2019-02-16 12:39] LABS: BASOPHILS # (AUTO) 0.1 10^3/uL (0.0-0.1); BASOPHILS % (AUTO) 0.9 %; EOSINOPHILS # (AUTO) 0.4 10^3/uL (0.0-0.7); EOSINOPHILS % (AUTO) 4.5 %; LYMPHOCYTES # (AUTO) 1.3 10^3/uL (1.5-3.5); LYMPHOCYTES % (AUTO) 14.7 %; MEAN CORPUSCULAR HEMOGLOBIN 31.8 pg (27.0-31.0); MEAN CORPUSCULAR HGB CONC 33.2 g/dL (32.0-36.0); MEAN CORPUSCULAR VOLUME 95.8 fL (81.0-99.0); MEAN PLATELET VOLUME 8.1 fL (7.9-10.8); MONOCYTES % (AUTO) 11.3 %; NEUTROPHILS # (AUTO) 6.1 10^3/uL (1.5-6.6); NEUTROPHILS % (AUTO) 68.6 %; PLT - PLATELET COUNT 246 10^3/uL (130-450); RED BLOOD COUNT 3.45 10^6/uL (4.20-5.40); RED CELL DISTRIBUTION WIDTH 15.2 % (12.0-15.0); WHITE BLOOD COUNT 8.9 x10^3/uL (4.8-10.8)
[2019-02-16 13:29] LABS: ALBUMIN 3.5 g/dL (3.2-5.5); ALBUMIN/GLOBULIN RATIO 1.1 (1.0-2.2); ALKALINE PHOSPHATASE 124 IU/L (42-121); ALT ALANINE AMINOTRANSFERASE 12 IU/L (10-60); AST ASPARTATE AMINOTRANSFERASE 22 IU/L (10-42); BILIRUBIN,TOTAL 0.6 mg/dL (0.2-1.0); BUN - BLOOD UREA NITROGEN 25 mg/dL (6-20); CALCIUM 8.4 mg/dL (8.5-10.3); CARBON DIOXIDE - CO2 26 mmol/L (21-32); CHLORIDE 107 mmol/L (101-111); CHOL/HDL RATIO 3.2 (<4.4); CHOLESTEROL 176 mg/dL; CREATININE 1.3 mg/dL (0.4-1.0); GFR - MDRD 39 (>89); GLUCOSE 69 mg/dL (70-100); HDL CHOLESTEROL 55 mg/dL; LDL CHOLESTEROL,CALCULATED 78 mg/dL; LDL/HDL RATIO 1.4 (<4.4); SODIUM 142 mmol/L (135-145); TOTAL PROTEIN 6.7 g/dL (6.7-8.2); VLDL CHOLESTEROL 43 mg/dL
== END 2019-02-16 23:59 | disposition home or self-care (01) ==
LOC: LAB.WCP 10:20
PROVIDERS: ATTEND Family Medicine
DX: E87.6 Hypokalemia (principal); E78.5 Hyperlipidemia, unspecified; D64.9 Anemia, unspecified
CPT/HCPCS: 36415; 80053; 80061; 83721; 85025

== ENCOUNTER 2019-05-17 08:00 | Outpatient (CLI) | payer MEDICARE, OTHER ==
[2019-05-17 19:11] LABS: CALCIUM 8.6 mg/dL (8.5-10.3); CREATININE 1.5 mg/dL (0.4-1.0)
== END 2019-05-17 23:59 | disposition home or self-care (01) ==
LOC: LAB.WCP 08:00
PROVIDERS: ATTEND Family Medicine
DX: I10 Essential (primary) hypertension (principal); G31.84 Mild cognitive impairment of uncertain or unknown etiology
CPT/HCPCS: 36415; 80048; 84443

== ENCOUNTER 2019-06-29 08:00 | Outpatient (CLI) | payer MEDICARE, OTHER ==
[2019-06-29 19:00] LABS: BASOPHILS # (AUTO) 0.1 10^3/uL (0.0-0.1); BASOPHILS % (AUTO) 0.6 %; EOSINOPHILS # (AUTO) 0.6 10^3/uL (0.0-0.7); EOSINOPHILS % (AUTO) 5.1 %; HGB - HEMOGLOBIN 12.3 g/dL (12.0-16.0); LYMPHOCYTES # (AUTO) 1.2 10^3/uL (1.5-3.5); LYMPHOCYTES % (AUTO) 10.8 %; MEAN CORPUSCULAR HEMOGLOBIN 30.2 pg (27.0-31.0); MEAN CORPUSCULAR HGB CONC 31.8 g/dL (32.0-36.0); MEAN CORPUSCULAR VOLUME 95.1 fL (81.0-99.0); MEAN PLATELET VOLUME 9.7 fL (7.9-10.8); MONOCYTES % (AUTO) 9.1 %; NEUTROPHILS # (AUTO) 8.1 10^3/uL (1.5-6.6); NEUTROPHILS % (AUTO) 73.9 %; PLT - PLATELET COUNT 307 10^3/uL (130-450); RED BLOOD COUNT 4.07 10^6/uL (4.20-5.40); RED CELL DISTRIBUTION WIDTH 14.1 % (12.0-15.0); WHITE BLOOD COUNT 10.9 x10^3/uL (4.8-10.8)
[2019-06-29 19:22] LABS: CALCIUM 8.4 mg/dL (8.5-10.3); CREATININE 1.3 mg/dL (0.4-1.0)
== END 2019-06-29 23:59 | disposition home or self-care (01) ==
LOC: LAB.WCP 08:00
PROVIDERS: ATTEND Physician Assistant Medical
DX: I95.9 Hypotension, unspecified (principal); D64.9 Anemia, unspecified
CPT/HCPCS: 36415; 80048; 82728; 85025

== ENCOUNTER 2019-07-06 17:04 | Inpatient (IN) | payer MEDICARE, OTHER ==
--- NOTE | 2019-07-06 17:42 | ED Physician Documentation ---
PD HPI DYSPNEA - Stated complaint Stated Complaint: LOW O2 SAT - Chief complaint Chief Complaint: Resp - History obtained from History obtained from: Family - History of Present Illness Timing - onset: Other (This is a joshua 88-year-old woman with dementia. She presents by private vehicle with her daughter who is the main historian. They noticed today that her oxygen saturation at [facility] was 88 which is new for her. She has no history of CHF or COPD. 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 SANDER: Hysterectomy - Present Medications Home Medications: Ambulatory Orders Medication Instructions Recorded Confirmed Hydrochlorothiazide 25 mg PO DAILY 12/14/14 10/25/18 Propranolol HCl [Innopran Xl] 120 mg PO DAILY 12/14/14 10/25/18 Raloxifene [Evista] 60 mg PO DAILY 12/14/14 10/25/18 Doxycycline Hyclate 100 mg PO BID 07/31/17 10/25/18 Loperamide HCl [Imodium A-D] 2 mg PO DAILY PRN 07/31/17 10/25/18 Potassium Chloride 10 meq PO DAILY #10 tablet.er 10/08/18 10/25/18 - Allergies Allergies/Adverse Reactions: Allergies Allergy/AdvReac Type Severity Reaction Status Date / Time amoxicillin AdvReac Unknown Unknown Verified 10/08/18 16:36 Erythromycin AdvReac Unknown Unknown Uncoded 11/22/17 13:16 - Social History Does the pt smoke?: No Smoking Status: Never smoker Does the pt drink ETOH?: Yes Does the pt have substance abuse?: No - Immunizations Immunizations are current?: Yes - POLST Patient has POLST: Yes PD ED PE NORMAL - Vitals Vital signs reviewed: Yes - General General: Other (A/O x1, person only, NAD) - HEENT HEENT: PERRL, EOMI - Neck Neck: Supple, no meningeal sign, No bony TTP - Cardiac Cardiac: Other (irregular) - Respiratory Respiratory: Other (bibasilar rhonchi) - Abdomen Abdomen: Soft, Non tender - Back Back: No CVA TTP, No spinal TTP - Derm Derm: Normal color, Warm and dry - Extremities Extremities: No edema, No calf tenderness / cord - Neuro Neuro: Normal speech Results - Vitals Vitals: Vital Signs - 24 hr 07/06/19 07/06/19 07/06/19 17:12 18:02 18:38 Temperature 36.4 C L Heart Rate 74 63 55 L Respiratory 22 16 23 Rate Blood Pressure 109/63 121/80 124/71 O2 Saturation 88 L 100 100 07/06/19 19:30 Temperature Heart Rate 59 L Respiratory 28 H Rate Blood Pressure 105/71 O2 Saturation 95 Oxygen O2 Source Room air Oxygen Flow Rate 4 - EKG (time done) 1745 Rate: Rate (enter#) (70) Rhythm: Atrial fibrillation Ischemia: Non specific changes (flat t waves throughout). No: ST elevation c/w ischemia, ST depression Computer interpretation: Disagree with computer (read as severe global ischemia) - Labs Labs: Laboratory Tests 07/06/19 07/06/19 07/06/19 17:55 17:55 17:55 WBC 15.6 H RBC 4.01 L Hgb 12.4 Hct 38.2 MCV 95.3 MCH 30.9 MCHC 32.5 RDW 14.4 Plt Count 325 MPV 9.0 Neut # (Auto) 12.8 H Lymph # (Auto) 1.3 L [place] # (Auto) 1.1 H Eos # (Auto) 0.1 Baso # (Auto) 0.1 Absolute Nucleated RBC 0.02 Nucleated RBC % 0.1 Sodium 142 Potassium 3.6 Chloride 105 Carbon Dioxide 25 Anion Gap 12.0 BUN 32 H Creatinine 1.6 H Estimated GFR (MDRD) 31 L Glucose 124 H Calcium 8.4 L Total Bilirubin 1.0 AST 30 ALT 16 Alkaline Phosphatase 92 Troponin I High Sens 19.2 H* B-Natriuretic Peptide Total Protein 6.6 L Albumin 2.8 L Globulin 3.8 Albumin/Globulin Ratio 0.7 L Lipase 32 07/06/19 17:55 WBC RBC Hgb Hct MCV MCH MCHC RDW Plt Count MPV Neut # (Auto) Lymph # (Auto) [place] # (Auto) Eos # (Auto) Baso # (Auto) Absolute Nucleated RBC Nucleated RBC % Sodium Potassium Chloride Carbon Dioxide Anion Gap BUN Creatinine Estimated GFR (MDRD) Glucose Calcium Total Bilirubin AST ALT Alkaline Phosphatase Troponin I High Sens B-Natriuretic Peptide 591 H Total Protein Albumin Globulin Albumin/Globulin Ratio Lipase - Rads (name of study) Single view chest x-ray Radiology: EMP read contemporaneously (IMPRESSION: New since 2014, low lung volumes and moderate coarsening of peripheral lung markings in the bilateral upper greater than lower lungs, possibly reflecting fibrosis or atypical pneumonitis. Tiny bilateral pleural effusions also are noted. ) CT Chest Radiology: EMP read contemporaneously (Diffuse bilateral panlobar parenchymal disease, may reflect a combination of in acute interstitial process such as pneumonia and/or edema. Imaging findings also be seen with chronic processes such as NSIP or perilobular organizing pneumonia. Small bilateral pleural effusions and right-sided cardiac chamber enlargement are present.) PD MEDICAL DECISION MAKING - ED course ED course: This is an 88-year-old woman who presents with an acute oxygen requirement and rhonchorous lungs. Chest x-ray shows potentially an atypical pneumonia but the differential diagnosis is broad and this was followed up with a CT which still did not help too much. With the elevated white count I am thinking probably an atypical pneumonia, but CHF is still a possibility. Her oxygen requirement is in the 3 L range in the department here. I am treating her for an atypical pneumonia with Rocephin and Zithromax after blood cultures and she will be admitted for further evaluation and treatment. Spoke with Dr. Pappas for admission at 8 PM. Departure - Departure Disposition: 66 [facility] DC/Xfer Clinical Impression: Hypoxemia Pneumonia Qualifiers: Pneumonia type: due to unspecified organism Laterality: bilateral Lung location: unspecified part of lung Qualified Code(s): J18.9 - Pneumonia, unspecified organism Dyspnea Qualifiers: Dyspnea type: shortness of breath Qualified Code(s): R06.02 - Shortness of breath Condition: Stable
[2019-07-06 18:05] LABS: BASOPHILS # (AUTO) 0.1 10^3/uL (0.0-0.1); BASOPHILS % (AUTO) 0.4 %; EOSINOPHILS # (AUTO) 0.1 10^3/uL (0.0-0.7); EOSINOPHILS % (AUTO) 0.6 %; HGB - HEMOGLOBIN 12.4 g/dL (12.0-16.0); LYMPHOCYTES # (AUTO) 1.3 10^3/uL (1.5-3.5); LYMPHOCYTES % (AUTO) 8.3 %; MEAN CORPUSCULAR HEMOGLOBIN 30.9 pg (27.0-31.0); MEAN CORPUSCULAR HGB CONC 32.5 g/dL (32.0-36.0); MEAN CORPUSCULAR VOLUME 95.3 fL (81.0-99.0); MONOCYTES # (AUTO) 1.1 10^3/uL (0.0-1.0); MONOCYTES % (AUTO) 7.3 %; NEUTROPHILS # (AUTO) 12.8 10^3/uL (1.5-6.6); NEUTROPHILS % (AUTO) 82.4 %; PLT - PLATELET COUNT 325 10^3/uL (130-450); RED BLOOD COUNT 4.01 10^6/uL (4.20-5.40); RED CELL DISTRIBUTION WIDTH 14.4 % (12.0-15.0); WHITE BLOOD COUNT 15.6 x10^3/uL (4.8-10.8)
[2019-07-06 18:20] LABS: ALBUMIN 2.8 g/dL (3.2-5.5); ALBUMIN/GLOBULIN RATIO 0.7 (1.0-2.2); CALCIUM 8.4 mg/dL (8.5-10.3); CREATININE 1.6 mg/dL (0.4-1.0); TOTAL PROTEIN 6.6 g/dL (6.7-8.2)
--- NOTE | 2019-07-06 18:29 | XRAY Report ---
Reason: dyspnea Procedure Date: 07/06/2019 Accession Number: [id number] / [id number] Procedure: XR - Chest 1 View X-Ray CPT Code: 67284 FULL RESULT: EXAM: CHEST RADIOGRAPHY EXAM DATE: 07/06/2019 05:54 PM. CLINICAL HISTORY: Dyspnea. Low oxygen saturation. COMPARISON: 12/14/2014 9:52 PM. TECHNIQUE: Upright AP view. The patient is mildly rotated toward the right. FINDINGS: Lungs/Pleura: New tiny bilateral pleural effusions. No moderate peripheral coarsening of upper greater than lower lung markings. Lung volumes are low. No confluent consolidation. No pneumothorax. Mediastinum: Heart size upper normal. No severiano lymphadenopathy. Other: None. IMPRESSION: New since 2014, low lung volumes and moderate coarsening of peripheral lung markings in the bilateral upper greater than lower lungs, possibly reflecting fibrosis or atypical pneumonitis. Tiny bilateral pleural effusions also are noted. RADIA
[2019-07-06] MEDS ORDERED: IOVERSOL 320 100 ML VIAL IVP ONE ×2 (18:53→19:07)
--- NOTE | 2019-07-06 19:46 | CT Report ---
Reason: abn cxr Procedure Date: 07/06/2019 Accession Number: [id number] / [id number] Procedure: CT - CHEST W CPT Code: FULL RESULT: EXAM: CT CHEST EXAM DATE: 07/06/2019 07:02 PM. CLINICAL HISTORY: Abn cxr. COMPARISONS: CHEST 1 VIEW 07/06/2019 5:41 PM. TECHNIQUE: Routine helical CT imaging was performed through the chest. IV contrast: 45 cc Optiray 320. Reconstructions: Coronal and sagittal. In accordance with CT protocol optimization, one or more of the following dose reduction techniques were utilized for this exam: automated exposure control, adjustment of mA and/or KV based on patient size, or use of iterative reconstructive technique. FINDINGS: Lungs/Pleura: Diffuse irregular polygonal and reticular opacities with peribronchovascular and septal thickening. Small bilateral pleural effusions with adjoining atelectasis. Mild cylindrical bronchiectasis. No honeycombing. Mediastinum: Imaged portions of the thyroid are grossly unremarkable. Thoracic aorta and main pulmonary artery are normal caliber.No dissection. No central pulmonary embolus. Right-sided cardiac chamber enlargement. No pericardial effusion. Lymph Nodes: No mediastinal, hilar, or axillary adenopathy. Bones: No suspicious osseous lesions. Visualized chest wall is grossly unremarkable. Partially Imaged Upper Abdomen: No acute abnormalities. IMPRESSION: Diffuse bilateral panlobar parenchymal disease, may reflect a combination of in acute interstitial process such as pneumonia and/or edema. Imaging findings also be seen with chronic processes such as NSIP or perilobular organizing pneumonia. Small bilateral pleural effusions and right-sided cardiac chamber enlargement are present. RADIA
[2019-07-06] MEDS ORDERED: cefTRIAXone 2 GM in SODIUM CHLORIDE 0.9% MINIBAG 100 ML IV STA (19:54)
[2019-07-06] MEDS ORDERED: AZITHROMYCIN INJ 500 MG in SODIUM CHLORIDE 0.9% 250 ML IV STA (19:54)
[2019-07-06] MEDS ORDERED: SODIUM CHLORIDE FLUSH 0.9% 10 ML SYRINGE IVP PRN (20:02)
[2019-07-06] MEDS ORDERED: ACETAMINOPHEN 325 MG TABLET PO PRN (20:02)
--- NOTE | 2019-07-06 20:25 | HISTORY & PHYSICAL EXAMINATION ---
Chief Complaint - Chief Complaint Chief Complaint: dyspnea History of Present Illness - Admitted From Admitted From:: [facility] - History Obtained From Records Reviewed: yes History obtained from: patient and family Exam Limitations: mild dementia - History of Present Illness HPI Comment/Other: Patient seen and examined on 07/06/19 around 21:00pm Patient is an 88 y/o female who presented to the ED from [facility] where she resides because she was found to have a low O2Sat. It was in the 80's on room air. She generally does not have any respiratory issues. Her daughter who is a retired nurse is at bedside and helped provide this history. The patient has been a bit dyspneic over the past 2-3 days. She has been more tired over the past week. She has been sleeping longer and not waking up in time for meals. She used to use a walker to get around, but lately has been in a wheelchair. She denies chest pain, abd pain, nausea, vomiting, fever or chills In the ED she was found to have a WBC of 15.6, BNP of 591, Trop I of 19.2. CXR raised the possibility of pneumonia vs CHF. As a result she is being admitted for further work up/treatment. 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 She resides at [facility] - POL Patient has POLST: Yes POLST Status: DNR Meds/Allgy - Home Medications Home Medications: Ambulatory Orders Medication Instructions Recorded Confirmed Hydrochlorothiazide 25 mg PO DAILY 12/14/14 10/25/18 Propranolol HCl [Innopran Xl] 120 mg PO DAILY 12/14/14 10/25/18 Raloxifene [Evista] 60 mg PO DAILY 12/14/14 10/25/18 Doxycycline Hyclate 100 mg PO BID 07/31/17 10/25/18 Loperamide HCl [Imodium A-D] 2 mg PO DAILY PRN 07/31/17 10/25/18 Potassium Chloride 10 meq PO DAILY #10 tablet.er 10/08/18 10/25/18 - Allergies Allergies/Adverse Reactions: Allergies Allergy/AdvReac Type Severity Reaction Status Date / Time amoxicillin AdvReac Unknown Unknown Verified 10/08/18 16:36 Erythromycin AdvReac Unknown Unknown Uncoded 11/22/17 13:16 Review of Systems - Constitutional Constitutional: reports: Fatigue. denies: Fever - Eyes Eyes: denies: Blurred vision, Vision loss, Dipolpia - Ears, Nose & Throat Ears, Nose & Throat: denies: Vertigo, Sore throat, Hoarseness - Cardiovascular Cariovascular: reports: Exertional dyspnea. denies: Irregular heart rate, Palpitations, Chest pain, Edema, Lightheadedness, Syncope - Respiratory Respiratory: reports: SOB at rest, SOB with exertion - Gastrointestinal Gastrointestinal: denies: Abdominal pain, Abdominal distention, Constipation, Diarrhea, Nausea, Vomiting, Reflux/heartburn - Genitourinary Genitourinary: denies: Dysuria, Frequency, Urgency, Hematuria, Flank pain - Musculoskeletal Musculoskeletal: denies: Muscle pain, Back pain - Integumentary Integumentary: denies: Rash, Pruritis, Lesions - Neurological Neurological: denies: Focal weakness, Headache, Dizziness, Numbness - Psychiatric Psychiatric: denies: Depression, Anxiety - Endocrine Endocrine: denies: Polyuria, Polydypsia - Hematologic/Lymphatic Hematologic/Lymphatic: denies: Anemia, Bruising, Petechiae Prior Level of Functionality: Patient resides at [facility]. She gets around on a wheelchair. This is new. She used to get around using her walker but has become weaker lately. She feeds herself but requires help with personal cares. Exam - Vital Signs Vital Signs: Vital Signs x48h Temp Pulse Resp BP Pulse Ox 07/06/19 20:00 59 L 19 105/71 100 07/06/19 19:30 59 L 28 H 105/71 95 07/06/19 18:38 55 L 23 124/71 100 07/06/19 18:02 63 16 121/80 100 07/06/19 17:12 36.4 C L 74 22 109/63 88 L - Physical Exam General Appearance: positive: Alert. negative: No acute distress, Lethargic Eyes Bilateral: positive: Normal inspection, PERRL, EOMI ENT: positive: ENT inspection nml, No signs of dehydration Neck: positive: Nml inspection, No JVD, Trachea midline Respiratory: positive: Chest non-tender, No respiratory distress Cardiovascular: positive: Regular rate & rhythm Abdomen: positive: Non-tender, No organomegaly, Nml bowel sounds, No distention. negative: Guarding, Rebound Back: positive: Nml inspection Skin: positive: Color nml, No rash, Warm, Dry. negative: Diaphoresis Extremities: positive: Non-tender, Full ROM, Nml appearance, No pedal edema Neurologic/Psychiatric: positive: Oriented x3, CN's nml (2-12), Motor nml, Sensation nml, Mood/affect nml Conclusion/Plan - Problem List (1) Pneumonia Conclusion/Plan: On rocephin and azithromycin On oxygen. Breathing treatment prn. Blood cultures pending Qualifiers: Pneumonia type: due to unspecified organism Laterality: bilateral Lung location: unspecified part of lung Qualified Code(s): J18.9 - Pneumonia, unspecified organism (2) Elevated troponin Conclusion/Plan: Mildly elevated. No chest pain. r/o CHF. Trend troponin X2 more. 2D echo in the am (3) Hypertension Conclusion/Plan: Currently normotensive On propanolol. HCTZ stopped this week by PCP due to hypokalemia Will continue (4) Dementia Conclusion/Plan: Mild. On namenda - Lab Results Fish Bones: 07/06/19 17:55 07/06/19 17:55 Core Measures - Anticipated LOS I expect patient to be DC'd or transferred within 96 hours.: Yes - DVT/VTE - Prophylaxis VTE/DVT Device ordered at admit?: Yes
[2019-07-06] MEDS ORDERED: IPRATROPIUM/ALBUTEROL 3 ML NEB INH PRN (20:44)
[2019-07-06] MEDS ORDERED: SODIUM CHLORIDE 0.9% 250 ML IV PRN (21:46)
[2019-07-07] MEDS: SODIUM CHLORIDE FLUSH 0.9% 10 ML SYRINGE IVP SCH ×3 (05:19→20:14)
[2019-07-07 05:35] LABS: BASOPHILS # (AUTO) 0.1 10^3/uL (0.0-0.1); BASOPHILS % (AUTO) 0.6 %; EOSINOPHILS # (AUTO) 0.4 10^3/uL (0.0-0.7); HGB - HEMOGLOBIN 11.2 g/dL (12.0-16.0); LYMPHOCYTES # (AUTO) 1.1 10^3/uL (1.5-3.5); MEAN CORPUSCULAR HEMOGLOBIN 31.1 pg (27.0-31.0); MEAN CORPUSCULAR HGB CONC 32.9 g/dL (32.0-36.0); MEAN CORPUSCULAR VOLUME 94.4 fL (81.0-99.0); MEAN PLATELET VOLUME 9.3 fL (7.9-10.8); MONOCYTES # (AUTO) 1.1 10^3/uL (0.0-1.0); MONOCYTES % (AUTO) 8.7 %; NEUTROPHILS # (AUTO) 10.3 10^3/uL (1.5-6.6); NEUTROPHILS % (AUTO) 78.7 %; PLT - PLATELET COUNT 267 10^3/uL (130-450); RED CELL DISTRIBUTION WIDTH 14.5 % (12.0-15.0); WHITE BLOOD COUNT 13.1 x10^3/uL (4.8-10.8)
[2019-07-07 05:46] LABS: CALCIUM 7.7 mg/dL (8.5-10.3); CREATININE 1.3 mg/dL (0.4-1.0)
[2019-07-07] MEDS: PANTOPRAZOLE 40 MG TABLET PO SCH ×2 (06:19→06:21)
[2019-07-07] MEDS ORDERED: POTASSIUM CHLORIDE 20 MEQ TABLET PO SCH (07:34)
[2019-07-07] MEDS: AZITHROMYCIN 250 MG TABLET PO SCH (08:51)
[2019-07-07] MEDS: FUROSEMIDE 20 MG TABLET PO SCH (08:51)
[2019-07-07] MEDS: POLYETHYLENE GLYCOL 3350 17 GM PACKET PO SCH (08:51)
--- NOTE | 2019-07-07 15:23 | PROVIDER PROGRESS NOTE ---
Subjective - Prog Note Date Prog Note Date: 07/07/19 - Subjective Pt reports feeling: Improved Subjective: pt report she feel better than yesterday. she is comfortable sitting in the bed to eat. she denies fever, chill, chest pain, shortness of breath. Current Medications - Current Medications Current Medications: Active Medications Acetaminophen (Tylenol) 650 mg PO Q4HR PRN PRN Reason: Pain 1 to 4 Albuterol/Ipratropium (Duoneb) 3 ml INH Q4HR PRN PRN Reason: Wheezing Azithromycin (Zithromax) 250 mg PO DAILY [facility] Stop: 07/10/19 09:01 Last Admin: 07/07/19 08:51 Dose: 250 mg Furosemide (Lasix) 20 mg PO DAILY [facility] Last Admin: 07/07/19 08:51 Dose: 20 mg Ceftriaxone Sodium 2 gm/ (Sodium Chloride) 100 mls @ 200 mls/hr IV Q24H HAYLEY Sodium Chloride (Normal Saline 0.9%) 250 mls @ 0 mls/hr IV Q24H PRN PRN Reason: TKO RATE Pantoprazole Sodium (Protonix) 40 mg PO QDAC [facility] Last Admin: 07/07/19 06:21 Dose: Not Given Polyethylene Glycol (Miralax) 17 gm PO DAILY [facility] Last Admin: 07/07/19 08:51 Dose: 17 gm Sodium Chloride (Normal Saline Flush 0.9%) 10 ml IVP PRN PRN PRN Reason: NEEDED PER PROVIDER ORDERS Sodium Chloride (Normal Saline Flush 0.9%) 10 ml IVP 0100,0900,1700 [facility] Last Admin: 07/07/19 07:57 Dose: 10 ml Hydrochlorothiazide 25 mg PO DAILY 12/14/14 Propranolol HCl [Innopran Xl] 120 mg PO DAILY 12/14/14 Raloxifene [Evista] 60 mg PO DAILY 12/14/14 Doxycycline Hyclate 100 mg PO BID 07/31/17 Loperamide HCl [Imodium A-D] 2 mg PO DAILY PRN 07/31/17 Objective - Vital Signs/Intake & Output Reviewed Vital Signs: Yes Vital Signs: Vital Signs x48h Temp Pulse Pulse Resp BP Pulse Ox 07/07/19 11:39 36.7 C 68 18 125/74 100 07/07/19 08:03 36.6 C 61 20 123/51 L 95 07/07/19 08:00 62 22 Intake & Output: Intake & Output 07/04/19 07/05/19 07/06/19 07/07/19 23:59 23:59 23:59 23:59 Intake Total 350 1080 Balance 350 1080 - Objective General Appearance: positive: No acute distress, Alert. negative: Lethargic Eyes Bilateral: positive: Normal inspection, PERRL, No lid inflammation ENT: positive: ENT inspection nml, Pharynx nml, No signs of dehydration. negative: Purulent nasal drainage, Pharyngeal erythema, Oral lesions Neck: positive: Nml inspection, Thyroid nml, No JVD, Trachea midline. negative: Thyromegaly, Lymphadenopathy (R), Lymphadenopathy (L), Stiff neck, Swelling/bruising, Tracheal deviation Respiratory: positive: Chest non-tender, No respiratory distress. negative: Wheezes, Rales, Rhonchi Cardiovascular: positive: Regular rate & rhythm, No murmur, No gallop. negativ e: Irregularly irregular, Extrasystoles, Tachycardia, Bradycardia, JVD present, Systolic murmur, Diastolic murmur Peripheral Pulses: 2+ Radial (R), 2+ Radial (L), 2+ Dorsalis pedis (R), 2+ Dorsalis pedis (L) Abdomen: positive: Non-tender, No organomegaly, Nml bowel sounds, No distention. negative: Tenderness, Guarding, Rebound Back: positive: Nml inspection. negative: CVA tenderness (R), CVA tenderness (L) Skin: positive: Color nml, No rash, Warm, Dry. negative: Cyanosis, Diaphoresis, Pallor Extremities: positive: Non-tender, Nml appearance. negative: Calf tenderness, Joint swelling, Sachi's sign/cords Neurologic/Psychiatric: positive: Sensation nml, Mood/affect nml. negative: Weakness, Sensory loss, Facial droop, Slurred/abnml speech, Depressed mood/affect - Lab Results Fish Bones: 07/08/19 05:15 07/08/19 05:15 Other Labs: Lab Results x24hrs 07/07/19 07/07/19 07/07/19 Range/Units 05:15 05:15 05:15 WBC 13.1 H (4.8-10.8) x10^3/uL RBC 3.60 L (4.20-5.40) 10^6/uL Hgb 11.2 L (12.0-16.0) g/dL Hct 34.0 L (37.0-47.0) % MCV 94.4 (81.0-99.0) fL MCH 31.1 H (27.0-31.0) pg MCHC 32.9 (32.0-36.0) g/dL RDW 14.5 (12.0-15.0) % Plt Count 267 (130-450) 10^3/uL MPV 9.3 (7.9-10.8) fL Neut # (Auto) 10.3 H (1.5-6.6) 10^3/uL Lymph # (Auto) 1.1 L (1.5-3.5) 10^3/uL [place]ens[place] # (Auto) 1.1 H (0.0-1.0) 10^3/uL Eos # (Auto) 0.4 (0.0-0.7) 10^3/uL Baso # (Auto) 0.1 (0.0-0.1) 10^3/uL Absolute Nucleated RBC 0.00 x10^3/uL Nucleated RBC % 0.0 /100WBC Sodium 139 (135-145) mmol/L Potassium 3.2 L (3.5-5.0) mmol/L Chloride 106 (101-111) mmol/L Carbon Dioxide 22 (21-32) mmol/L Anion Gap 11.0 (6-13) BUN 30 H (6-20) mg/dL Creatinine 1.3 H (0.4-1.0) mg/dL Estimated GFR (MDRD) 39 L (>89) Glucose 95 (70-100) mg/dL Lactic Acid (0.5-2.2) mmol/L Calcium 7.7 L (8.5-10.3) mg/dL Total Bilirubin (0.2-1.0) mg/dL AST (10-42) IU/L ALT (10-60) IU/L Alkaline Phosphatase (42-121) IU/L Troponin I High Sens 13.7 (2.3-14.8) pg/mL B-Natriuretic Peptide (5-100) pg/mL Total Protein (6.7-8.2) g/dL Albumin (3.2-5.5) g/dL Globulin (2.1-4.2) g/dL Albumin/Globulin Ratio (1.0-2.2) Lipase (22-51) U/L 07/06/19 07/06/19 07/06/19 Range/Units 23:05 20:05 17:55 WBC (4.8-10.8) x10^3/uL RBC (4.20-5.40) 10^6/uL Hgb (12.0-16.0) g/dL Hct (37.0-47.0) % MCV (81.0-99.0) fL MCH (27.0-31.0) pg MCHC (32.0-36.0) g/dL RDW (12.0-15.0) % Plt Count (130-450) 10^3/uL MPV (7.9-10.8) fL Neut # (Auto) (1.5-6.6) 10^3/uL Lymph # (Auto) (1.5-3.5) 10^3/uL [place] # (Auto) (0.0-1.0) 10^3/uL Eos # (Auto) (0.0-0.7) 10^3/uL Baso # (Auto) (0.0-0.1) 10^3/uL Absolute Nucleated RBC x10^3/uL Nucleated RBC % /100WBC Sodium (135-145) mmol/L Potassium (3.5-5.0) mmol/L Chloride (101-111) mmol/L Carbon Dioxide (21-32) mmol/L Anion Gap (6-13) BUN (6-20) mg/dL Creatinine (0.4-1.0) mg/dL Estimated GFR (MDRD) (>89) Glucose (70-100) mg/dL Lactic Acid 1.6 (0.5-2.2) mmol/L Calcium (8.5-10.3) mg/dL Total Bilirubin (0.2-1.0) mg/dL AST (10-42) IU/L ALT (10-60) IU/L Alkaline Phosphatase (42-121) IU/L Troponin I High Sens 14.6 (2.3-14.8) pg/mL B-Natriuretic Peptide 591 H (5-100) pg/mL Total Protein (6.7-8.2) g/dL Albumin (3.2-5.5) g/dL Globulin (2.1-4.2) g/dL Albumin/Globulin Ratio (1.0-2.2) Lipase (22-51) U/L 07/06/19 07/06/19 07/06/19 Range/Units 17:55 17:55 17:55 WBC 15.6 H (4.8-10.8) x10^3/uL RBC 4.01 L (4.20-5.40) 10^6/uL Hgb 12.4 (12.0-16.0) g/dL Hct 38.2 (37.0-47.0) % MCV 95.3 (81.0-99.0) fL MCH 30.9 (27.0-31.0) pg MCHC 32.5 (32.0-36.0) g/dL RDW 14.4 (12.0-15.0) % Plt Count 325 (130-450) 10^3/uL MPV 9.0 (7.9-10.8) fL Neut # (Auto) 12.8 H (1.5-6.6) 10^3/uL Lymph # (Auto) 1.3 L (1.5-3.5) 10^3/uL [place] # (Auto) 1.1 H (0.0-1.0) 10^3/uL Eos # (Auto) 0.1 (0.0-0.7) 10^3/uL Baso # (Auto) 0.1 (0.0-0.1) 10^3/uL Absolute Nucleated RBC 0.02 x10^3/uL Nucleated RBC % 0.1 /100WBC Sodium 142 (135-145) mmol/L Potassium 3.6 (3.5-5.0) mmol/L Chloride 105 (101-111) mmol/L Carbon Dioxide 25 (21-32) mmol/L Anion Gap 12.0 (6-13) BUN 32 H (6-20) mg/dL Creatinine 1.6 H (0.4-1.0) mg/dL Estimated GFR (MDRD) 31 L (>89) Glucose 124 H (70-100) mg/dL Lactic Acid (0.5-2.2) mmol/L Calcium 8.4 L (8.5-10.3) mg/dL Total Bilirubin 1.0 (0.2-1.0) mg/dL AST 30 (10-42) IU/L ALT 16 (10-60) IU/L Alkaline Phosphatase 92 (42-121) IU/L Troponin I High Sens 19.2 H* (2.3-14.8) pg/mL B-Natriuretic Peptide (5-100) pg/mL Total Protein 6.6 L (6.7-8.2) g/dL Albumin 2.8 L (3.2-5.5) g/dL Globulin 3.8 (2.1-4.2) g/dL Albumin/Globulin Ratio 0.7 L (1.0-2.2) Lipase 32 (22-51) U/L ABX Reporting Has patient been on IV antibiotics over the past 48 hours?: Yes Assessment/Plan - Problem List (1) Pneumonia Impression: pt report she feel better, pt is comfortable 96% sats on 2 liter of O2, no respiratory distress. continue rocephin and azithromycin continue supplement of oxygen. Breathing treatment prn. Blood cultures is negative for bacteremia (2) Elevated troponin Conclusion/Plan: value is on the normal arrange now. pt denies chest pain, palpitation. 2D echo is pending, will followup continue tele and vital monitor (3) Hypertension Conclusion/Plan: stable Currently normotensive On propanolol. HCTZ stopped this week by PCP due to hypokalemia Will continue (4) Dementia Conclusion/Plan: stable, continue namenda Qualifiers: Pneumonia type: due to unspecified organism Laterality: bilateral Lung location: unspecified part of lung Qualified Code(s): J18.9 - Pneumonia, unspecified organism
[2019-07-07] MEDS ORDERED: cefTRIAXone 2 GM in SODIUM CHLORIDE 0.9% MINIBAG 100 ML IV SCH (20:00)
[2019-07-07] MEDS ORDERED: MIN OIL/DIMETHICON/COCONUT OIL 92 GM TUBE TOP PRN (21:44)
[2019-07-08] MEDS: SODIUM CHLORIDE FLUSH 0.9% 10 ML SYRINGE IVP SCH ×3 (02:08→17:21)
[2019-07-08 05:34] LABS: BASOPHILS # (AUTO) 0.1 10^3/uL (0.0-0.1); BASOPHILS % (AUTO) 0.6 %; EOSINOPHILS # (AUTO) 0.3 10^3/uL (0.0-0.7); HGB - HEMOGLOBIN 11.7 g/dL (12.0-16.0); MEAN CORPUSCULAR HEMOGLOBIN 30.6 pg (27.0-31.0); MEAN CORPUSCULAR HGB CONC 31.6 g/dL (32.0-36.0); MEAN CORPUSCULAR VOLUME 96.9 fL (81.0-99.0); MEAN PLATELET VOLUME 9.5 fL (7.9-10.8); MONOCYTES # (AUTO) 1.1 10^3/uL (0.0-1.0); MONOCYTES % (AUTO) 7.6 %; NEUTROPHILS # (AUTO) 11.9 10^3/uL (1.5-6.6); NEUTROPHILS % (AUTO) 81.6 %; PLT - PLATELET COUNT 266 10^3/uL (130-450); RED BLOOD COUNT 3.82 10^6/uL (4.20-5.40); RED CELL DISTRIBUTION WIDTH 14.8 % (12.0-15.0); WHITE BLOOD COUNT 14.5 x10^3/uL (4.8-10.8)
[2019-07-08 05:39] LABS: CALCIUM 7.8 mg/dL (8.5-10.3); CREATININE 1.3 mg/dL (0.4-1.0)
[2019-07-08] MEDS: PANTOPRAZOLE 40 MG TABLET PO SCH (06:35)
[2019-07-08] MEDS: POLYETHYLENE GLYCOL 3350 17 GM PACKET PO SCH (08:14)
[2019-07-08] MEDS: AZITHROMYCIN 250 MG TABLET PO SCH (08:14)
[2019-07-08] MEDS: FUROSEMIDE 20 MG TABLET PO SCH (08:14)
--- NOTE | 2019-07-08 08:31 | XRAY Report ---
Reason: shortness of breath Procedure Date: 07/08/2019 Accession Number: [id number] / [id number] Procedure: XR - Chest 1 View X-Ray CPT Code: 81775 FULL RESULT: EXAM: CHEST RADIOGRAPHY EXAM DATE: 07/08/2019 08:18 AM. CLINICAL HISTORY: Shortness of breath. COMPARISON: CHEST 1 VIEW 07/06/2019 5:41 PM. TECHNIQUE: 1 view. FINDINGS IMPRESSION: 1. Diffuse patchy pulmonary opacities, predominating in the upper lung zones, greater in the lower part of the right upper lobe, bibasilar pulmonary opacities, bilateral small pleural effusions again visualized, minimally worsening versus difference in technique. 2. No pneumothorax. Borderline cardiomegaly is stable in appearance. RADIA
[2019-07-08] MEDS ORDERED: SODIUM CHLORIDE 0.9% IV SCH ×2 (16:00→17:00)
[2019-07-08] MEDS ORDERED: VANCOMYCIN PER PHARMACY 1 GM in SODIUM CHLORIDE 0.9% 250 ML IV SCH (16:00)
[2019-07-08] MEDS ORDERED: CEFEPIME IV SCH ×2 (16:00→17:00)
--- NOTE | 2019-07-08 16:06 | PROVIDER PROGRESS NOTE ---
Subjective - Prog Note Date Prog Note Date: 07/08/19 - Subjective Pt reports feeling: Worse Subjective: pt present worsening, pt request 9 liter of O2, and lower degree fever. I discussed with pt's two daughters, both are DPOA. DPOA signed new PLOST, DNR/DNI with comfortable measure only. DPOA want antibiotics treatment, but decline ABGs because DPOA think it is lots of pain for pt, decline BiPAP if needed now. But DPOA desire to receive call or note for them to make the final decision if pt's condition continue deteriorate. Current Medications - Current Medications Current Medications: Active Medications Acetaminophen (Tylenol) 650 mg PO Q4HR PRN PRN Reason: Pain 1 to 4 Last Admin: 07/08/19 14:57 Dose: 650 mg Albuterol/Ipratropium (Duoneb) 3 ml INH Q4HR PRN PRN Reason: Wheezing Furosemide (Lasix) 20 mg PO DAILY [facility] Last Admin: 07/08/19 08:14 Dose: 20 mg Sodium Chloride (Normal Saline 0.9%) 250 mls @ 0 mls/hr IV Q24H PRN PRN Reason: TKO RATE Vancomycin HCl 1 gm/ Sodium (Chloride) 250 mls @ 167 mls/hr IV Q400H [facility] Vancomycin HCl 1 gm/ Sodium (Chloride) 250 mls @ 250 mls/hr IV ONCE ONE Stop: 07/08/19 17:59 Cefepime HCl 0.5 gm/ Sodium (Chloride) 100 mls @ 200 mls/hr IV DAILY [facility] Memantine (Namenda) 10 mg PO BID [facility] Mineral Oil (Cavilon) 1 applic TOP PRN PRN PRN Reason: Skin Care Pantoprazole Sodium (Protonix) 40 mg PO QDAC [facility] Last Admin: 07/08/19 06:35 Dose: 40 mg Polyethylene Glycol (Miralax) 17 gm PO DAILY [facility] Last Admin: 07/08/19 08:14 Dose: 17 gm Sodium Chloride (Normal Saline Flush 0.9%) 10 ml IVP PRN PRN PRN Reason: NEEDED PER PROVIDER ORDERS Last Admin: 07/07/19 20:08 Dose: 10 ml Sodium Chloride (Normal Saline Flush 0.9%) 10 ml IVP 0100,0900,1700 [facility] Last Admin: 07/08/19 08:14 Dose: 10 ml Raloxifene [Evista] 60 mg PO DAILY 12/14/14 Loperamide HCl [Imodium A-D] 2 mg PO DAILY 07/31/17 Acetaminophen 650 mg PO Q4H PRN 07/07/19 Cyanocobalamin (Vitamin B-12) [Vitamin B-12 (1000 mcg sublingual)] 1,000 mcg PO DAILY 07/07/19 Memantine HCl 10 mg PO BID 07/07/19 Nitrofurantoin Macrocrystal [Nitrofurantoin] 100 mg PO DAILY 07/07/19 Propranolol HCl [Propranolol HCl ER] 120 mg PO DAILY 07/07/19 Sertraline HCl 100 mg PO QPM 07/07/19 Objective - Vital Signs/Intake & Output Reviewed Vital Signs: Yes Vital Signs: Vital Signs x48h Temp Pulse Pulse Pulse Pulse Resp BP 07/08/19 15:27 37.1 C 70 24 07/08/19 14:55 38.0 C H 07/08/19 12:31 36.5 C 72 40 H 07/08/19 11:26 37.1 C 65 37 H 07/08/19 10:30 82 77 133/67 H 07/08/19 10:23 65 37 H 07/08/19 08:20 26 H BP BP Pulse Ox 07/08/19 15:27 126/74 93 07/08/19 14:55 07/08/19 12:31 123/67 92 07/08/19 11:26 92 07/08/19 10:30 127/73 07/08/19 10:23 07/08/19 08:20 97 Intake & Output: Intake & Output 07/05/19 07/06/19 07/07/19 07/08/19 23:59 23:59 23:59 23:59 Intake Total 350 1830 475 Balance 350 1830 475 - Objective General Appearance: positive: Alert, Mild distress. negative: Lethargic Eyes Bilateral: positive: Normal inspection, PERRL, No lid inflammation, Conjunctivae nml ENT: positive: ENT inspection nml, Pharynx nml, No signs of dehydration. negative: Purulent nasal drainage, Pharyngeal erythema, Oral lesions Neck: positive: Nml inspection, Thyroid nml, No JVD, Trachea midline. negative: Thyromegaly, Lymphadenopathy (R), Lymphadenopathy (L), Stiff neck, Swelling/bruising, Tracheal deviation Respiratory: positive: Chest non-tender, Rhonchi. negative: No respiratory distress, Breath sounds nml, Wheezes, Rales Cardiovascular: positive: Regular rate & rhythm, No murmur, No gallop. negative: Irregularly irregular, Extrasystoles, Tachycardia, Bradycardia, JVD present, Systolic murmur, Diastolic murmur Peripheral Pulses: 2+ Radial (R), 2+ Radial (L), 2+ Dorsalis pedis (R), 2+ Dorsalis pedis (L) Abdomen: positive: Non-tender, No organomegaly, Nml bowel sounds, No distention. negative: Tenderness, Guarding, Rebound Back: positive: Nml inspection. negative: CVA tenderness (R), CVA tenderness (L) Skin: positive: Color nml, No rash, Warm, Dry. negative: Cyanosis, Diaphoresis, Pallor Extremities: positive: Non-tender, Nml appearance. negative: Calf tenderness, Joint swelling, Sachi's sign/cords Neurologic/Psychiatric: positive: Sensation nml, Mood/affect nml. negative: Weakness, Sensory loss, Facial droop, Slurred/abnml speech, Depressed m ood/affect - Lab Results Fish Bones: 07/08/19 05:15 07/08/19 05:15 Other Labs: Lab Results x24hrs 07/08/19 07/08/19 07/08/19 Range/Units 08:21 08:21 05:15 WBC (4.8-10.8) x10^3/uL RBC (4.20-5.40) 10^6/uL Hgb (12.0-16.0) g/dL Hct (37.0-47.0) % MCV (81.0-99.0) fL MCH (27.0-31.0) pg MCHC (32.0-36.0) g/dL RDW (12.0-15.0) % Plt Count (130-450) 10^3/uL MPV (7.9-10.8) fL Neut # (Auto) (1.5-6.6) 10^3/uL Lymph # (Auto) (1.5-3.5) 10^3/uL [place] # (Auto) (0.0-1.0) 10^3/uL Eos # (Auto) (0.0-0.7) 10^3/uL Baso # (Auto) (0.0-0.1) 10^3/uL Absolute Nucleated RBC x10^3/uL Nucleated RBC % /100WBC ESR 66 H (0-30) mm/Hr Sodium (135-145) mmol/L Potassium (3.5-5.0) mmol/L Chloride (101-111) mmol/L Carbon Dioxide (21-32) mmol/L Anion Gap (6-13) BUN (6-20) mg/dL Creatinine (0.4-1.0) mg/dL Estimated GFR (MDRD) (>89) Glucose (70-100) mg/dL Calcium (8.5-10.3) mg/dL C-Reactive Protein 18.4 H (0-1.0) mg/dL B-Natriuretic Peptide 717 H (5-100) pg/mL 07/08/19 07/08/19 Range/Units 05:15 05:15 WBC 14.5 H (4.8-10.8) x10^3/uL RBC 3.82 L (4.20-5.40) 10^6/uL Hgb 11.7 L (12.0-16.0) g/dL Hct 37.0 (37.0-47.0) % MCV 96.9 (81.0-99.0) fL MCH 30.6 (27.0-31.0) pg MCHC 31.6 L (32.0-36.0) g/dL RDW 14.8 (12.0-15.0) % Plt Count 266 (130-450) 10^3/uL MPV 9.5 (7.9-10.8) fL Neut # (Auto) 11.9 H (1.5-6.6) 10^3/uL Lymph # (Auto) 1.0 L (1.5-3.5) 10^3/uL [place] # (Auto) 1.1 H (0.0-1.0) 10^3/uL Eos # (Auto) 0.3 (0.0-0.7) 10^3/uL Baso # (Auto) 0.1 (0.0-0.1) 10^3/uL Absolute Nucleated RBC 0.02 x10^3/uL Nucleated RBC % 0.1 /100WBC ESR (0-30) mm/Hr Sodium 140 (135-145) mmol/L Potassium 3.5 (3.5-5.0) mmol/L Chloride 108 (101-111) mmol/L Carbon Dioxide 20 L (21-32) mmol/L Anion Gap 12.0 (6-13) BUN 26 H (6-20) mg/dL Creatinine 1.3 H (0.4-1.0) mg/dL Estimated GFR (MDRD) 39 L (>89) Glucose 99 (70-100) mg/dL Calcium 7.8 L (8.5-10.3) mg/dL C-Reactive Protein (0-1.0) mg/dL B-Natriuretic Peptide (5-100) pg/mL ABX Reporting Has patient been on IV antibiotics over the past 48 hours?: Yes Sepsis Event Note (H) - Evaluation Current Stage of Sepsis: Sepsis - Sepsis Criteria Sepsis Criteria: Recorded Temperature greater than 38.3C or Less than 36C, WBC count greater than 10% bands, WBC count greater than 12,000 or less than 4000 Assessment/Plan - Problem List (1) Sepsis Impression: pt had lower degree fever, still had elevated WBC at 14.5, require more O2 supplement, and present SOB although pt is comfortable measure, but DPOA still want full antibiotics treatment change antibiotics to Cefepime and Vancomycin order blood culture increase O2 supplement as needed DPOA decline for ABGs now. pt required 9 liter of O2 supplement. check lactic acid (2) Pneumonia Impression: CXR reveals slight worsening infection, WBC is still high at 14.5 change antibiotics to Cefepime and Vancomycin order blood culture increase O2 supplement as needed DPOA decline for ABGs now. pt required 9 liter of O2 supplement. pt report she feel better, pt is comfortable 96% sats on 2 liter of O2, no respiratory distress. continue rocephin and azithromycin continue supplement of oxygen. Breathing treatment prn. Blood cultures is negative for bacteremia (3) Elevated troponin Conclusion/Plan: value is on the normal arrange now. pt denies chest pain, palpitation. 2D echo is pending, will followup continue tele and vital monitor (4) Hypertension Conclusion/Plan: stable Currently normotensive On propanolol. HCTZ stopped this week by PCP due to hypokalemia Will continue (5) Dementia Conclusion/Plan: stable, continue namenda
--- NOTE | 2019-07-08 16:06 | ADVANCE CARE PLANNING NOTE ---
Advance Care Planning - Planning Encounter Date: 07/08/19 Time: 16:06 Purpose: advance care for pt Parties in Attendance: pt, two daughters, both are DPOA, and me Decisional Capacity of the Patient: pt has hx of dementia, plus sickness. pt's capacity to make her own decision is very limited. - Diagnosis for Encounter (1) Pneumonia Qualifiers: Pneumonia type: due to unspecified organism Laterality: bilateral Lung location: unspecified part of lung Qualified Code(s): J18.9 - Pneumonia, unspecified organism (6) Dyspnea Qualifiers: Dyspnea type: shortness of breath Qualified Code(s): R06.02 - Shortness of breath; R06.00 - Dyspnea, unspecified; R06.01 - Orthopnea - Encounter Subjective/Patient's Story: pt's daughter report her mother had pulmonary issue for long time. Her father from pulmonary fibrosis, she feared her mother suffered from the similar problem. pt's two daughters both are DPOA to help make decision for her mother. Both agree her mother now need DNR/DNI with comfortable measure now. they want to sign a new PLOST for pt. we did. Her daughter selected DNR/DNI and comfortable measure for pt. A new PLOST then was scanned in the [facility] now Objective/Medical Story: pt's respiratory status is becoming worsening now. pt required 12 liter of O2, remain above 90% sats Goals of Care: advance care and quality life for pt Plan: signed new PLOST with DNR/DNI and comfortable measure. DPOA will talk with rest of her family to determine if hospice care is necessary for pt Code Status: Do Not Attempt Resuscitation Time spent on advance care plannin
[2019-07-08] MEDS ORDERED: VANCOMYCIN INJ 1 GM in SODIUM CHLORIDE 0.9% 250 ML IV ONE ×2 (17:00→17:15)
[2019-07-08] MEDS ORDERED: VANCOMYCIN PER PHARMACY 1 GM in SODIUM CHLORIDE 0.9% 250 ML IV PRN (17:24)
[2019-07-08] MEDS: MEMANTINE 5 MG TABLET PO SCH (20:17)
[2019-07-09] MEDS: SODIUM CHLORIDE FLUSH 0.9% 10 ML SYRINGE IVP SCH ×3 (00:37→16:59)
[2019-07-09 05:30] LABS: BASOPHILS # (AUTO) 0.1 10^3/uL (0.0-0.1); BASOPHILS % (AUTO) 0.5 %; EOSINOPHILS # (AUTO) 0.5 10^3/uL (0.0-0.7); EOSINOPHILS % (AUTO) 2.9 %; HGB - HEMOGLOBIN 11.6 g/dL (12.0-16.0); LYMPHOCYTES # (AUTO) 1.2 10^3/uL (1.5-3.5); LYMPHOCYTES % (AUTO) 6.9 %; MEAN CORPUSCULAR HEMOGLOBIN 30.9 pg (27.0-31.0); MEAN CORPUSCULAR HGB CONC 32.2 g/dL (32.0-36.0); MEAN PLATELET VOLUME 9.3 fL (7.9-10.8); MONOCYTES # (AUTO) 1.3 10^3/uL (0.0-1.0); MONOCYTES % (AUTO) 7.3 %; NEUTROPHILS # (AUTO) 13.9 10^3/uL (1.5-6.6); NEUTROPHILS % (AUTO) 81.2 %; PLT - PLATELET COUNT 256 10^3/uL (130-450); RED BLOOD COUNT 3.75 10^6/uL (4.20-5.40); RED CELL DISTRIBUTION WIDTH 14.6 % (12.0-15.0); WHITE BLOOD COUNT 17.1 x10^3/uL (4.8-10.8)
[2019-07-09 05:41] LABS: CALCIUM 7.7 mg/dL (8.5-10.3); CREATININE 1.2 mg/dL (0.4-1.0)
[2019-07-09] MEDS: PANTOPRAZOLE 40 MG TABLET PO SCH (06:58)
[2019-07-09] MEDS ORDERED: POTASSIUM CHLORIDE 20 MEQ TABLET PO SCH (07:50)
[2019-07-09] MEDS: CEFEPIME 2 GM in SODIUM CHLORIDE 0.9% MINIBAG 100 ML IV SCH (08:33)
[2019-07-09] MEDS: MEMANTINE 5 MG TABLET PO SCH ×3 (08:35→21:24)
[2019-07-09] MEDS: FUROSEMIDE 20 MG TABLET PO SCH (08:35)
[2019-07-09] MEDS: POLYETHYLENE GLYCOL 3350 17 GM PACKET PO SCH (08:35)
[2019-07-09] MEDS: predniSONE 20 MG TABLET PO SCH (08:35)
--- NOTE | 2019-07-09 08:43 | XRAY Report ---
Reason: sob Procedure Date: 07/09/2019 Accession Number: [id number] / [id number] Procedure: XR - Chest 1 View X-Ray CPT Code: 59596 FULL RESULT: EXAM: CHEST RADIOGRAPHY EXAM DATE: 07/09/2019 08:21 AM. CLINICAL HISTORY: Shortness of breath. COMPARISON: CHEST 1 VIEW 07/08/2019 8:00 AM CHEST W/ 07/06/2019 6:57 PM. TECHNIQUE: 1 view. FINDINGS: Lungs/Pleura: Small right greater than left pleural effusions. Coarse interstitial markings. Right greater than left upper lobe alveolar opacities. Mediastinum: Cardiomegaly. Other: Bones appear osteopenic. IMPRESSION: Stable abnormal exam. Small pleural effusions. Bilateral upper lobe opacities can be due to edema, infection, chronic lung disease or a combination of etiologies. RADIA
--- NOTE | 2019-07-09 15:31 | PROVIDER PROGRESS NOTE ---
Subjective - Prog Note Date Prog Note Date: 07/09/19 - Subjective Pt reports feeling: Worse Subjective: pt's respiratory status continue deteriorated. pt present shallow breathing rapid at 37. she need high flow 15 of O2 to remain 88/89% or above sats. pt's WBC continue to increase. I discussed with pt's DPOA, daughter Suri, at the pt's bed side about pt's conditions and care plan. After Suri discussed with her whole family, Suri told me, she choose for hospice care. nephrology social worker after talk with hospice team, then talked with Suri and choose tomorrow afternoon 1 pm transfer to [facility] for hospice care. hospice care was referred. DPOA request antibiotics and current care for pt in the hospital now. Current Medications - Current Medications Current Medications: Active Medications Acetaminophen (Tylenol) 650 mg PO Q4HR PRN PRN Reason: Pain 1 to 4 Last Admin: 07/08/19 14:57 Dose: 650 mg Albuterol/Ipratropium (Duoneb) 3 ml INH Q4HR PRN PRN Reason: Wheezing Furosemide (Lasix) 20 mg PO DAILY [facility] Last Admin: 07/09/19 08:35 Dose: 20 mg Sodium Chloride (Normal Saline 0.9%) 250 mls @ 0 mls/hr IV Q24H PRN PRN Reason: TKO RATE Vancomycin HCl 1 gm/ Sodium (Chloride) 250 mls @ 167 mls/hr IV PRN PRN PRN Reason: VANCO PER PHARMACY Cefepime HCl 2 gm/ Sodium (Chloride) 100 mls @ 200 mls/hr IV Q24H [facility] Last Infusion: 07/09/19 09:34 Dose: Infused Memantine (Namenda) 10 mg PO BID [facility] Last Admin: 07/09/19 08:35 Dose: 10 mg Mineral Oil (Cavilon) 1 applic TOP PRN PRN PRN Reason: Skin Care Pantoprazole Sodium (Protonix) 40 mg PO QDAC [facility] Last Admin: 07/09/19 06:58 Dose: Not Given Polyethylene Glycol (Miralax) 17 gm PO DAILY [facility] Last Admin: 07/09/19 08:35 Dose: 17 gm Prednisone (Deltasone) 30 mg PO DAILYWM [facility] Last Admin: 07/09/19 08:35 Dose: 30 mg Sodium Chloride (Normal Saline Flush 0.9%) 10 ml IVP PRN PRN PRN Reason: NEEDED PER PROVIDER ORDERS Last Admin: 07/07/19 20:08 Dose: 10 ml Sodium Chloride (Normal Saline Flush 0.9%) 10 ml IVP 0100,0900,1700 [facility] Last Admin: 07/09/19 08:35 Dose: 10 ml Raloxifene [Evista] 60 mg PO DAILY 12/14/14 Loperamide HCl [Imodium A-D] 2 mg PO DAILY 07/31/17 Acetaminophen 650 mg PO Q4H PRN 07/07/19 Cyanocobalamin (Vitamin B-12) [Vitamin B-12 (1000 mcg sublingual)] 1,000 mcg PO DAILY 07/07/19 Memantine HCl 10 mg PO BID 07/07/19 Nitrofurantoin Macrocrystal [Nitrofurantoin] 100 mg PO DAILY 07/07/19 Propranolol HCl [Propranolol HCl ER] 120 mg PO DAILY 07/07/19 Sertraline HCl 100 mg PO QPM 07/07/19 Objective - Vital Signs/Intake & Output Reviewed Vital Signs: Yes Vital Signs: Vital Signs x48h Temp Pulse Pulse Resp BP BP Pulse Ox 07/09/19 13:00 36.5 C 94 41 H 120/68 86 L 07/09/19 12:19 93 07/09/19 11:55 85 37 H 07/09/19 07:59 37.0 C 81 36 H 118/63 92 Intake & Output: Intake & Output 07/06/19 07/07/19 07/08/19 07/09/19 23:59 23:59 23:59 23:59 Intake Total 350 1830 1047.667 750 Balance 350 1830 1047.667 750 - Objective General Appearance: positive: No acute distress, Alert. negative: Lethargic Eyes Bilateral: positive: Normal inspection, PERRL, No lid inflammation, Conjunctivae nml ENT: positive: ENT inspection nml, Pharynx nml, No signs of dehydration. negative: Purulent nasal drainage Neck: positive: Nml inspection, Thyroid nml, No JVD, Trachea midline. negative: Thyromegaly, Lymphadenopathy (R), Lymphadenopathy (L), Stiff neck, Tracheal deviation Respiratory: positive: Chest non-tender, Rales, Rhonchi. negative: No r espiratory distress, Breath sounds nml, Wheezes Cardiovascular: positive: Regular rate & rhythm, No murmur, No gallop. negative: Irregularly irregular, Extrasystoles, Tachycardia, Bradycardia, JVD present, Systolic murmur, Diastolic murmur Peripheral Pulses: 2+ Radial (R), 2+ Radial (L), 2+ Dorsalis pedis (R), 2+ Dorsalis pedis (L) Abdomen: positive: Non-tender, No organomegaly, Nml bowel sounds, No distention. negative: Tenderness, Guarding, Rebound Back: positive: Nml inspection. negative: CVA tenderness (R), CVA tenderness (L) Skin: positive: Color nml, No rash, Warm, Dry. negative: Cyanosis, Diaphoresis, Pallor Extremities: positive: Non-tender. negative: Calf tenderness, Sachi's sign/cords Neurologic/Psychiatric: negative: Sensory loss, Facial droop - Lab Results Fish Bones: 07/09/19 05:03 07/09/19 05:03 Other Labs: Lab Results x24hrs 07/09/19 07/09/19 07/09/19 Range/Units 05:03 05:03 05:03 WBC 17.1 H (4.8-10.8) x10^3/uL RBC 3.75 L (4.20-5.40) 10^6/uL Hgb 11.6 L (12.0-16.0) g/dL Hct 36.0 L (37.0-47.0) % MCV 96.0 (81.0-99.0) fL MCH 30.9 (27.0-31.0) pg MCHC 32.2 (32.0-36.0) g/dL RDW 14.6 (12.0-15.0) % Plt Count 256 (130-450) 10^3/uL MPV 9.3 (7.9-10.8) fL Neut # (Auto) 13.9 H (1.5-6.6) 10^3/uL Lymph # (Auto) 1.2 L (1.5-3.5) 10^3/uL [place] # (Auto) 1.3 H (0.0-1.0) 10^3/uL Eos # (Auto) 0.5 (0.0-0.7) 10^3/uL Baso # (Auto) 0.1 (0.0-0.1) 10^3/uL Absolute Nucleated RBC 0.00 x10^3/uL Nucleated RBC % 0.0 /100WBC Sodium 141 (135-145) mmol/L Potassium 3.4 L (3.5-5.0) mmol/L Chloride 108 (101-111) mmol/L Carbon Dioxide 22 (21-32) mmol/L Anion Gap 11.0 (6-13) BUN 22 H (6-20) mg/dL Creatinine 1.2 H (0.4-1.0) mg/dL Estimated GFR (MDRD) 43 L (>89) Glucose 111 H (70-100) mg/dL Lactic Acid (0.5-2.2) mmol/L Calcium 7.7 L (8.5-10.3) mg/dL B-Natriuretic Peptide 430 H (5-100) pg/mL 07/08/19 Range/Units 17:12 WBC (4.8-10.8) x10^3/uL RBC (4.20-5.40) 10^6/uL Hgb (12.0-16.0) g/dL Hct (37.0-47.0) % MCV (81.0-99.0) fL MCH (27.0-31.0) pg MCHC (32.0-36.0) g/dL RDW (12.0-15.0) % Plt Count (130-450) 10^3/uL MPV (7.9-10.8) fL Neut # (Auto) (1.5-6.6) 10^3/uL Lymph # (Auto) (1.5-3.5) 10^3/uL [place] # (Auto) (0.0-1.0) 10^3/uL Eos # (Auto) (0.0-0.7) 10^3/uL Baso # (Auto) (0.0-0.1) 10^3/uL Absolute Nucleated RBC x10^3/uL Nucleated RBC % /100WBC Sodium (135-145) mmol/L Potassium (3.5-5.0) mmol/L Chloride (101-111) mmol/L Carbon Dioxide (21-32) mmol/L Anion Gap (6-13) BUN (6-20) mg/dL Creatinine (0.4-1.0) mg/dL Estimated GFR (MDRD) (>89) Glucose (70-100) mg/dL Lactic Acid 1.5 (0.5-2.2) mmol/L Calcium (8.5-10.3) mg/dL B-Natriuretic Peptide (5-100) pg/mL ABX Reporting Has patient been on IV antibiotics over the past 48 hours?: Yes Sepsis Event Note (H) - Evaluation Current Stage of Sepsis: Sepsis - Sepsis Criteria Sepsis Criteria: Recorded Temperature greater than 38.3C or Less than 36C, WBC count greater than 10% bands, WBC count greater than 12,000 or less than 4000 Assessment/Plan - Problem List (1) Respiratory failure with hypoxia Impression: 07/09 pt continue required high flow 12-15 liter of O2 support her 88/89% sats or above. RT tried to wane off but unsuccessful. CT of chest reveals diffuse bilateral panlobar parenchymal disease, combination of acute pneumonia or edema. DPOA request hospice for pt, but DPOA want pt to have antibiotics and current treatment in the hospital now continue antibiotics, supplement of O2, continue consulted with RT with breath treatment as needed (2) Sepsis Impression: 07/09 pt present shallow rapid breath with increase WBC to 17. continue antibiotics cefepime and vancomycin hospice care on tomorrow pt had lower degree fever, still had elevated WBC at 14.5, require more O2 supplement, and present SOB although pt is comfortable measure, but DPOA still want full antibiotics treatment change antibiotics to Cefepime and Vancomycin order blood culture increase O2 supplement as needed DPOA decline for ABGs now. pt required 9 liter of O2 supplement. check lactic acid (3) Pneumonia Impression: 07/09 CXR reveals the similar as yesterday,but WBC increase to 17, pt present SOB and shallow breath. continue antibiotics in hospital per DPOA refer to hospice care on tomorrow per DPOA request CXR reveals slight worsening infection, WBC is still high at 14.5 change antibiotics to Cefepime and Vancomycin order blood culture increase O2 supplement as needed DPOA decline for ABGs now. pt required 9 liter of O2 supplement. pt report she feel better, pt is comfortable 96% sats on 2 liter of O2, no respiratory distress. continue rocephin and azithromycin continue supplement of oxygen. Breathing treatment prn. Blood cultures is negative for bacteremia (4) Elevated troponin Conclusion/Plan: value is on the normal arrange now. pt denies chest pain, palpitation. 2D echo is pending, will followup continue tele and vital monitor (5) Hypertension Conclusion/Plan: stable Currently normotensive On propanolol. HCTZ stopped this week by PCP due to hypokalemia Will continue (6) Dementia Conclusion/Plan: stable, continue namenda (7) hospice care pt's respiratory status continue deteriorated. pt's code status is DNR/DNI. DPOA choose hospice care for pt
[2019-07-09] MEDS ORDERED: LORazepam 2 MG/ML VIAL IVP STA (20:57)
[2019-07-10] MEDS: SODIUM CHLORIDE FLUSH 0.9% 10 ML SYRINGE IVP SCH ×2 (01:46→08:25)
[2019-07-10] MEDS: PANTOPRAZOLE 40 MG TABLET PO SCH (06:13)
[2019-07-10] MEDS: FUROSEMIDE 20 MG TABLET PO SCH (08:24)
[2019-07-10] MEDS: MEMANTINE 5 MG TABLET PO SCH (08:24)
[2019-07-10] MEDS: predniSONE 20 MG TABLET PO SCH (08:24)
[2019-07-10] MEDS: POLYETHYLENE GLYCOL 3350 17 GM PACKET PO SCH (08:25)
[2019-07-10] MEDS: CEFEPIME 2 GM in SODIUM CHLORIDE 0.9% MINIBAG 100 ML IV SCH (08:25)
--- NOTE | 2019-07-10 09:10 | Discharge Plan ---
Discharge Plan Problem Reviewed?: Yes Disposition: 03 [facility] DC/Xfer Condition: Serious Prescriptions: Cefepime 2 gm IV Q24H #4 vial Furosemide [Lasix] 20 mg PO DAILY #10 tablet predniSONE [Deltasone] 30 mg PO DAILYWM #10 tablet Diet: Soft Activity Restrictions: Activity as Tolerated Health Concerns: Pneumonia and failure to thrive. Plan of Treatment: Finish antibiotics then Comfort care under Hospice. Care Goals: As above. Assessment: Requested by DPOA and arrangements per W. No Smoking: If you smoke, Please STOP! Call for help.
--- NOTE | 2019-07-10 09:20 | Discharge Plan ---
"Discharge Plan for SNF / [facility] - Discharge Plan And Transition Orders Problem Reviewed?: Yes Disposition: 03 SNF DC/Xfer Condition: Serious Allergies and Adverse Reactions: Allergies Allergy/AdvReac Type Severity Reaction Status Date / Time amoxicillin AdvReac Unknown Unknown Verified 10/08/18 16:36 erythromycin base AdvReac Unknown Unknown Verified 07/08/19 16:18 Health Concerns: Pneumonia and failure to thrive. Plan of Treatment: Finish antibiotics then Comfort care under Hospice. Care Goals: As above. Assessment: Requested by DPOA and arrangements per SW. - SNF / GROUP HOME Transition [facility] Dis[facility] Diagnosis: (1) Respiratory failure with hypoxia (2) Sepsis (3) Pneumonia DPOA requested complete treatment of pneumonia (4) Elevated troponin (5) Hypertension (6) Dementia (7) Hospice care pending pt's respiratory status continues to deteriorate. pt's code status is DNR/DNI. DPOA requested hospice care for pt Medicare Certification Statement: I certify that [facility] is medically necessary on a continuing basis for any of the conditions for which she/he is receiving care during hospitalization. Notify PCP of admission and forward orders to primary provider for signature. Other Notification Orders: Call PCP immediately if patient develops dyspnea, chest pain/tightness or edema. House Bowel Program: Yes Additional Bowel Program Orders: If no BM after 2 days, nurse may give M.O.M. 30ml PO PRN and/or ducolax Supp 1 MA and/or DANIEL 250mg P.O., and/or senna 1-2 tabs PO. On day 3 nurse may give repeat above order until residents constipation is resolved. Annual Influenza Vaccine (between May 30 and December 27): Yes Two-step PPD per [facility] [phone] or approved exception documents: Yes Medication Orders: PLEASE REFER TO THE DISCHARGE MEDICATION LIST. - Medications New Prescriptions: Cefepime 2 gm IV Q24H #4 vial Furosemide [Lasix] 20 mg PO DAILY #10 tablet predniSONE [Deltasone] 30 mg PO DAILYWM #10 tablet - Diet Type: Geriatric - Therapies | Activity Activity: Activity as Tolerated"
[2019-07-10 12:01] VITALS: BP 121/62
--- NOTE | 2019-07-15 14:40 | DISCHARGE SUMMARY ---
Discharge Summary Admit Date: 07/06/19 Discharge Date: 07/10/19 Discharging Provider: Dr Kayleigh Martinez Primary Care Provider: MIMI Cortés Code Status: Do Not Attempt Resuscitation Condition at Discharge: Serious Discharge Disposition: 03 SNF DC/Xfer Discharge Facility Name: [facility] - DIAGNOSES Admission Diagnoses: (1) Pneumonia (2) Elevated troponin (3) Hypertension (4) Dementia Discharge Diagnoses with Status of Each Condition: See below - HPI History of Present Illness: from the admission H&P of Dr Caroline Pappas: Patient is an 88 y/o female who presented to the ED from [facility] where she resides because she was found to have a low O2Sat. It was in the 80's on room air. She generally does not have any respiratory issues. Her daughter who is a retired nurse is at bedside and helped provide this history. The patient has been a bit dyspneic over the past 2-3 days. She has been more tired over the past week. She has been sleeping longer and not waking up in time for meals. She used to use a walker to get around, but lately has been in a whe elchair. She denies chest pain, abd pain, nausea, vomiting, fever or chills In the ED she was found to have a WBC of 15.6, BNP of 591, hs-Trop of 19.2. CXR raised the possibility of pneumonia vs CHF. As a result she is being admitted for further work up/treatment. - HOSPITAL COURSE Hospital Course: (1) Respiratory failure with hypoxia After initial improvement for a day, she again required higher levels of supplemental oxygen (up to 9L per n.c.). The DPOA wished her not to get BIPAP or have ABGs, a new POLST was signed with DNR/DNI and Comfort measures. When she was [facility], the plan was to complete the antibiotics, but to be accepted by Hospice soon for Comfort Care. (2) Sepsis The initial WBC of 15, improved to 13, then worsened again to 14.5 then 17, she was hypothermic at 36C and felt to be septic. All blood cultures remained neg. (3) Pneumonia She made no sputum to send for culture. She was initially put on iv Zithromax and iv Ceftriaxone which was broadened to iv Vanco and iv Cefepime when she worsened. The DPOA requested to complete treatment of the pneumonia. (4) Elevated troponin The first hs-troponin was 19, then declined to normal range of 14. The Echo done during this admission showed a normal LVEF of 65%, milkd RV enlargement and moderate pulmonary HTN with PA pressure 59 mmHg. She was felt to have mild volume overload, and was on Lasix. (5) Hypertension BP was controlled on her meds. (6) Dementia She was on her home Namenda dose. (7) Hospice care pending Her respiratory status continued to deteriorate and code status is DNR/DNI. DPOA requested Hospice care for patient, which is to be started after she is at [facility]. - ALLERGIES Allergies/Adverse Reactions: Allergies Allergy/AdvReac Type Severity Reaction Status Date / Time amoxicillin AdvReac Unknown Unknown Verified 10/08/18 16:36 erythromycin base AdvReac Unknown Unknown Verified 07/08/19 16:18 - MEDICATIONS Home Medications: Ambulatory Orders Medication Instructions Recorded Confirmed Memantine HCl 10 mg PO BID 07/07/19 07/07/19 Cefepime 2 gm IV Q24H #4 vial 07/10/19 Furosemide [Lasix] 20 mg PO DAILY #10 tablet 07/10/19 predniSONE [Deltasone] 30 mg PO DAILYWM #10 tablet 07/10/19 - PHYSICAL EXAM AT DISCHARGE General Appearance: positive: Moderate distress Eyes Bilateral: positive: Normal inspection Neck: positive: Other (Supple, (+) JVD) Respiratory: positive: Other (Respiratory distress until medicated, diminished breath sounds) Cardiovascular: positive: Regular rate & rhythm Abdomen: positive: Non-tender Extremities: positive: No pedal edema - LABS Result Diagrams: 07/09/19 05:03 07/09/19 05:03 - SEPSIS Current Stage of Sepsis: Sepsis Sepsis Criteria: Recorded Temperature greater than 38.3C or Less than 36C, WBC count greater than 10% bands, WBC count greater than 12,000 or less than 4000
== END 2019-07-10 13:44 | disposition home or self-care (01) | DRG 193 ==
LOC: ED 17:04 → MS2 20:02
PROVIDERS: ADMIT Internal Medicine; ATTEND Internal Medicine
DX: J18.9 Pneumonia, unspecified organism (principal); R09.02 Hypoxemia; I10 Essential (primary) hypertension; I48.91 Unspecified atrial fibrillation; J96.01 Acute respiratory failure with hypoxia; A41.9 Sepsis, unspecified organism; I11.9 Hypertensive heart disease without heart failure; I27.20 Pulmonary hypertension, unspecified; E87.70 Fluid overload, unspecified; R62.7 Adult failure to thrive; F03.90 Unspecified dementia, unspecified severity, without behavioral disturbance, psychotic disturbance, mood disturbance, and anxiety; Z66 Do not resuscitate; Z51.5 Encounter for palliative care; Z99.3 Dependence on wheelchair; Z79.899 Other long term (current) drug therapy; Z83.6 Family history of other diseases of the respiratory system; Z68.21 Body mass index [BMI] 21.0-21.9, adult
CPT/HCPCS: 36415; 71045; 71260; 80048; 80053; 83605; 83690; 83880; 84484; 85025; 85651; 86140; 87040; 93005; 93306; 97161; 97165; 99285; A6250; A9270; J2060; J3370; J7512; Q9967; 80202

== ENCOUNTER 2019-07-10 13:42 | Outpatient (CLI) | payer MEDICARE, OTHER | END 2019-07-10 13:43 | disposition home or self-care (01) | LOC: EMS 13:42 | PROVIDERS: ATTEND Surgery | DX: J96.90 Respiratory failure, unspecified, unspecified whether with hypoxia or hypercapnia (principal); Z74.01 Bed confinement status; Z99.81 Dependence on supplemental oxygen | CPT/HCPCS: A0425; A0428 ==